=== PATIENT | female | born 1975 | race Caucasian/White ===

== ENCOUNTER 2016-09-06 07:21 | Emergency (ER) | payer BC ==
[2016-09-06 07:36] VITALS: BP 114/66
[2016-09-06] MEDS ORDERED: NS 0.9% 1000 ML* 1,000 ML BOLUS ONE (07:53)
[2016-09-06] MEDS ORDERED: Ketorolac INJ* 30 MG/ML 1 ML VIAL IV ONE (07:53)
[2016-09-06] MEDS ORDERED: Ondansetron INJ* 2 MG/ML VIAL IV ONE ×2 (07:54→08:51)
--- NOTE | 2016-09-06 07:55 | UC ---
Headache HPI - HPI Summary HPI Summary: 40 yo female with bitemproal TODD x 2 days Nausea decreased po intake photophobia has had Ct brain and MRI brain in past 6 mos no f/c no cp/sob some post nasal drip - History Of Current Complaint Chief Complaint: UCGeneralIllness Stated Complaint: HEADACHE AND NAUSEA Time Seen by Provider: 09/06/16 07:45 Hx Obtained From: Patient Onset/Duration: Gradual Onset, Lasting Days Onset Of Symptoms: Gradual Initially Headache Was: Moderate - sever at times in past 48 hours Currently Pain Is: Mild Pain Intensity: 4 Pain Scale Used: 0-10 Numeric Timing: Constant Character: Throbbing, Pressure Location of Headache: Temporal Aggravating Factor: Nothing Allevating Factors: Nothing Associated Signs And Symptoms: Positive: Nausea - Allergies/Home Medications Allergies/Adverse Reactions: Allergies Allergy/AdvReac Type Severity Reaction Status Date / Time FLOOR WAX STRIPPER Allergy Difficulty Uncoded 04/16/16 08:47 Breathing FLU SHOT Allergy Difficulty Uncoded 04/16/16 08:47 Breathing Home Medications: Home Medications Albuterol 0.5% CONC NEB.LEO* 09/06/16 [History] Cholecalciferol [Vitamin D-3] 09/06/16 [History] Coenzyme Q10 (Ubidecarenone) [Co-Enzyme Q10] 200 mg 09/06/16 [History] Probiotic Product [Acidophilus] 09/06/16 [History] Rizatriptan (NF) [Maxalt(NF)] 10 mg 09/06/16 [History] PMH/Surg Hx/FS Hx/Imm Hx Previously Healthy: Yes Endocrine History Of: Denies: Diabetes Cardiovascular History Of: Denies: Hypertension, Pacemaker/ICD Respiratory History Of: Reports: Asthma GI/ History Of: Denies: Renal Disease Neurological History Of: Reports: Migraine Cancer History Of: Denies: Breast Cancer - Surgical History Surgical History: Yes Surgery Procedure, Year, and Place: TONSIL 2010 - Family History Known Family History: Positive: Cardiac Disease, Other - migraines (sib) - Social History Alcohol Use: Rare Substance Use Type: None Smoking Status (MU): Never Smoked Tobacco - Immunization History Most Recent Influenza Vaccination: 2010 Most Recent Tetanus Shot: unknown Most Recent Pneumonia Vaccination: never Review of Systems Constitutional: Negative Skin: Negative Eyes: Negative ENT: Negative Respiratory: Negative Cardiovascular: Negative Gastrointestinal: Other - nausea Genitourinary: Negative Motor: Negative Neurovascular: Negative Musculoskeletal: Negative Neurological: Negative Psychological: Negative All Other Systems Reviewed And Are Negative: Yes Physical Exam Triage Information Reviewed: Yes Appearance: Well-Appearing, No Pain Distress, Well-Nourished Vital Signs: Initial Vital Signs Temp 98.1 F 09/06/16 07:30 Pulse 54 09/06/16 07:30 Resp 16 09/06/16 07:30 BP 114/66 09/06/16 07:30 Pulse Ox 98 09/06/16 07:30 Eyes: Positive: Conjunctiva Clear ENT: Positive: Hearing grossly normal, Pharynx normal, Nasal congestion, TMs normal. Negative: Tonsillar exudate, Trismus, Muffled/hoarse voice Neck: Positive: Supple, Nontender, No Lymphadenopathy, Other: - no bruits Respiratory: Positive: Lungs clear, Normal breath sounds, No respiratory distress, No accessory muscle use Cardiovascular: Positive: RRR, No Murmur, Pulses Normal Abdomen Description: Positive: Nontender, Soft. Negative: CVA Tenderness (R), CVA Tenderness (L) Bowel Sounds: Positive: Present Musculoskeletal: Positive: Strength Intact, ROM Intact Neurological: Positive: Alert, Muscle Tone Normal, Other: - non focal exam/ normal gait/strength 5/5, sensory intact, dtrs equal bilat Psychological Exam: Normal Skin Exam: Normal Skin: Positive: rashes Headache Course/Dx - Course Course Of Treatment: not improved - Differential Dx/Diagnosis Provider Diagnoses: headache Discharge - Discharge Plan Condition: Stable Disposition: HOME Prescriptions: Butalb/Acetamin/Caff TAB* [Fioricet TAB*] 1 tab PO Q6H PRN #12 tab MDD 4 PRN Reason: Headache Ondansetron ODT TAB* [Zofran Odt TAB*] 4 mg PO Q6H PRN #12 tab.odt PRN Reason: Nausea/Vomiting Patient Education Materials: General Headache (ED) Forms: *Work Release Referrals: Ofelia De Jesus MD [Primary Care Provider] - 4 Days (if not better) Additional Instructions: recheck for new or worsening symptoms
== END 2016-09-06 10:06 | disposition home or self-care (01) ==
LOC: UCEAST 07:21
DX: R51 Headache (principal); R11.2 Nausea with vomiting, unspecified
CPT/HCPCS: 96360; 96365; 96374; 99212; G0463; J1885; J2405

== ENCOUNTER 2017-12-16 21:21 | Emergency (ER) | payer BC ==
[2017-12-16 22:14] LABS: ABS Basophils 0 10^3/ul (0-0.2); ABS Eosinophils 0.1 10^3/ul (0-0.6); ABS Lymphocytes 1.4 10^3/ul (1.0-4.8); ABS Monocytes 0.4 10^3/ul (0-0.8); ABS Neutrophils 3.3 10^3/ul (1.5-7.7); ABS Nucleated RBC 0 10^3/ul; Eosinophil % 1.4 % (0-6); Hematocrit 40 % (35-47); Hemoglobin 13.3 g/dl (12.0-16.0); Lymphocyte % 27.4 % (25-47); Mean Corpuscular HGB Conc 33 g/dl (31-36); Mean Corpuscular Hemoglobin 32 pg (27-31); Mean Corpuscular Volume 96 fL (80-97); Mean Platelet Volume 8.8 um3 (7.4-10.4); Nucleated Red Blood Cells % 0; Platelet Count 230 10^3/ul (150-450); Red Blood Count 4.19 10^6/ul (4.0-5.4); Red Cell Distribution Width 13 % (10.5-15); White Blood Count 5.2 10^3/ul (3.5-10.8)
[2017-12-16 22:33] LABS: EGFR Non-African American 94.4 (>60)
[2017-12-16] MEDS ORDERED: Ketorolac INJ* 60 MG/2 ML VIAL IM ONE (23:00)
[2017-12-16] MEDS ORDERED: Potassium Chlor TAB* 20 MEQ TAB.ER PO ONE (23:00)
[2017-12-16] MEDS ORDERED: ALPRAZolam TAB* 0.5 MG PO ONE (23:00)
[2017-12-17 01:43] VITALS: BP 90/53
--- NOTE | 2017-12-17 01:48 | ED ---
Joon Magallon Rebecca, scribed for Brendan Tate MD on 12/16/17 at 2252 . HPI Chest Pain - HPI Summary HPI Summary: Pt is a 42 y/o F who presents to ED c/o CP. Pain began 4 days ago, initially intermittent though since yesterday it has been constant. Pain is described as a constant pressure with intermittent stabbing pain, currently moderate, ranked 6/10. Sx are in the midsternal area without radiation. Sx aggravated by deep breaths, alleviated by nothing. Cites recent stress. PMHx asthma - has used her albuterol which has not improved sx. FHx CAD - mother. - History of Current Complaint Chief Complaint: EDChestPainROMI Time Seen by Provider: 12/16/17 22:46 Hx Obtained From: Patient Onset/Duration: Started Days Ago - 4 days, Still Present Timing: Constant Current Severity: Moderate Pain Intensity: 6 Pain Scale Used: 0-10 Numeric Chest Pain Location: Mid Sternal Chest Pain Radiates: No Character: Pressure/Squeezing Aggravating Factor(s): Deep Breaths Alleviating Factor(s): Nothing Associated Signs and Symptoms: Positive: Negative - Allergy/Home Medications Allergies/Adverse Reactions: Allergies Allergy/AdvReac Type Severity Reaction Status Date / Time ackee fruit Allergy Rash Uncoded 01/14/17 08:05 FLOOR WAX STRIPPER Allergy Difficulty Uncoded 01/14/17 08:04 Breathing FLU SHOT Allergy Difficulty Uncoded 01/14/17 08:04 Breathing harley Allergy Difficulty Uncoded 01/14/17 08:05 Breathing PMH/Surg Hx/FS Hx/Imm Hx Endocrine/Hematology History: Denies: Hx Diabetes Cardiovascular History: Denies: Hx Hypertension, Hx Pacemaker/ICD Respiratory History: Reports: Hx Asthma GI History: Reports: Hx Gastroesophageal Reflux Disease, Other GI Disorders - bloated, gassy History: Denies: Hx Renal Disease Musculoskeletal History: Reports: Hx Back Problems Sensory History: Reports: Hx Contacts or Glasses Denies: Hx Hearing Aid Opthamlomology History: Reports: Hx Contacts or Glasses Neurological History: Reports: Hx Migraine Psychiatric History: Denies: Hx Panic Disorder - Cancer History Hx Chemotherapy: No Hx Radiation Therapy: No - Surgical History Surgery Procedure, Year, and Place: [place] 2010 Infectious Disease History: No Infectious Disease History: Reports: Hx Tuberculosis Denies: Traveled Outside the [place] in Last 30 Days - Family History Known Family History: Positive: Cardiac Disease, Other - migraines (sib) - Social History Alcohol Use: Occasionally Alcohol Amount: approx 2 drinks a month Substance Use Type: Reports: None Smoking Status (MU): Never Smoked Tobacco Have You Smoked in the Last Year: No Review of Systems Negative: Fever Positive: Chest Pain All Other Systems Reviewed And Are Negative: Yes Physical Exam - Summary Physical Exam Summary: VITAL SIGNS: Reviewed. GENERAL: ~Patient is a well-developed and nourished female who is lying comfortable in the stretcher. Patient is not in any acute respiratory distress. HEAD AND FACE: No signs of trauma. No ecchymosis, hematomas or skull depressions. No sinus tenderness. EYES: PERRLA, EOMI x 2, No injected conjunctiva, no nystagmus. EARS: Hearing grossly intact. Ear canals and tympanic membranes are within normal limits. MOUTH: Oropharynx within normal limits. NECK: Supple, trachea is midline, no adenopathy, no JVD, no carotid bruit, no c- spine tenderness, neck with full ROM. CHEST: Symmetric. Chest wall tenderness. LUNGS: Clear to auscultation bilaterally. No wheezing or crackles. CVS: Regular rate and rhythm, S1 and S2 present, no murmurs or gallops appreciated. ABDOMEN: Soft, non-tender. No signs of distention. No rebound no guarding, and no masses palpated. Bowel sounds are normal. EXTREMITIES: FROM in all major joints, no edema, no cyanosis or clubbing. NEURO: Alert and oriented x 3. No acute neurological deficits. Speech is normal and follows commands. SKIN: Dry and warm Triage Information Reviewed: Yes Vital Signs On Initial Exam: Initial Vitals Temp Pulse Resp BP Pulse Ox 97.2 F 72 18 140/87 100 12/16/17 21:24 12/16/17 21:24 12/16/17 21:24 12/16/17 21:24 12/16/17 21:24 Vital Signs Reviewed: Yes Diagnostics - Vital Signs Vital Signs Temp Pulse Resp BP Pulse Ox 12/16/17 22:41 73 16 99 12/16/17 22:40 114/64 12/16/17 21:24 97.2 F 72 18 140/87 100 - Laboratory Lab Results: Lab Results 12/16/17 12/16/17 12/16/17 Range/Units 22:00 22:00 22:00 WBC 5.2 (3.5-10.8) 10^3/ul RBC 4.19 (4.0-5.4) 10^6/ul Hgb 13.3 (12.0-16.0) g/dl Hct 40 (35-47) % MCV 96 (80-97) fL MCH 32 H (27-31) pg MCHC 33 (31-36) g/dl RDW 13 (10.5-15) % Plt Count 230 (150-450) 10^3/ul MPV 8.8 (7.4-10.4) um3 Neut % (Auto) 62.2 (38-83) % Lymph % (Auto) 27.4 (25-47) % [place] % (Auto) 8.4 H (0-7) % Eos % (Auto) 1.4 (0-6) % Baso % (Auto) 0.6 (0-2) % Absolute Neuts (auto) 3.3 (1.5-7.7) 10^3/ul Absolute Lymphs (auto) 1.4 (1.0-4.8) 10^3/ul Absolute Monos (auto) 0.4 (0-0.8) 10^3/ul Absolute Eos (auto) 0.1 (0-0.6) 10^3/ul Absolute Basos (auto) 0 (0-0.2) 10^3/ul Absolute Nucleated RBC 0 10^3/ul Nucleated RBC % 0 Sodium 137 L (139-145) mmol/L Potassium 3.2 L (3.5-5.0) mmol/L Chloride 101 (101-111) mmol/L Carbon Dioxide 28 (22-32) mmol/L Anion Gap 8 (2-11) mmol/L BUN 12 (6-24) mg/dL Creatinine 0.68 (0.51-0.95) mg/dL Est GFR ( Amer) 121.4 (>60) Est GFR (Non-Af Amer) 94.4 (>60) BUN/Creatinine Ratio 17.6 (8-20) Glucose 102 H (70-100) mg/dL Calcium 9.5 (8.6-10.3) mg/dL Total Bilirubin 0.40 (0.2-1.0) mg/dL AST 15 (13-39) U/L ALT 9 (7-52) U/L Alkaline Phosphatase 47 (34-104) U/L Troponin I 0.00 (<0.04) ng/mL C-Reactive Protein 1.88 (< 5.00) mg/L B-Natriuretic Peptide 26 ( - 100) pg/mL Total Protein 7.4 (6.4-8.9) g/dL Albumin 4.6 (3.2-5.2) g/dL Globulin 2.8 (2-4) g/dL Albumin/Globulin Ratio 1.6 (1-3) Beta HCG, Quant < 0.60 mIU/mL Result Diagrams: 12/16/17 22:00 12/16/17 22:00 Lab Statement: Any lab studies that have been ordered have been reviewed, and results considered in the medical decision making process. - Radiology CXR Xray Interpretation: No Acute Changes - No acute process. Radiology Interpretation Completed By: ED Physician - EKG 2123 Cardiac Rate: NL - 64 bpm EKG Rhythm: Sinus Rhythm EKG Interpretation: Normal axis. Normal interval. No ischemic changes. Re-Evaluation - Re-Evaluation First Eval Re-Evaluation Time: 01:24 Change: Improved Comment: Pt's sx have improved. Chest Pain Course/Dx - Course Assessment/Plan: Pt is a 42 y/o F who presents to ED c/o CP for 4 days, initially intermittent, constant since yesterday. Pain is a constant pressure with intermittent stabbing pain, currently moderate, ranked 6/10. Sx are in the midsternal area without radiation. Sx aggravated by deep breaths. Cites recent stress. PMHx asthma - has used her albuterol which has not improved sx. FHx CAD - mother. CXR and EKG reveal no acute findings. Bloodwork was done. Troponin of 0.00. In the ED course, pt received Xanax and Toradol which improved symptoms. Pt will be D/C to home with Dx of atypical chest pain and anxiety. She understands and agrees. Allergies noted. - Diagnoses Provider Diagnoses: Atypical chest pain, Anxiety Discharge - Sign-Out/Discharge Documenting (check all that apply): Discharge - Discharge - Discharge Plan Condition: Stable Disposition: HOME Patient Education Materials: Chest Pain (ED), Anxiety (ED) Referrals: Ofelia De Jesus MD [Primary Care Provider] - 3 Days Additional Instructions: RETURN TO EMERGENCY DEPARTMENT FOR ANY NEW OR WORSENING SYMPTOMS The documentation as recorded by the Joon godwin Rebecca accurately reflects the service I personally performed and the decisions made by , Brendan Tate MD.
--- NOTE | 2017-12-17 07:57 | RAD ---
INDICATION: Chest pain COMPARISON: None TECHNIQUE: An AP portable view obtained at 0030 hours is submitted. FINDINGS: Bones/Soft Tissues: There are no acute bony findings. Cardiomediastinal: The cardiomediastinal silhouette is normal. Lungs: There are no infiltrates. Pleura: There are no pleural effusions. Other: None IMPRESSION: NO ACTIVE DISEASE.
== END 2017-12-17 01:43 | disposition home or self-care (01) ==
LOC: ED 21:21
DX: R07.89 Other chest pain (principal); F41.9 Anxiety disorder, unspecified; J45.909 Unspecified asthma, uncomplicated; K21.9 Gastro-esophageal reflux disease without esophagitis
CPT/HCPCS: 36415; 71045; 80053; 83880; 84484; 84702; 85025; 86140; 93005; 96372; 99282; A9270-GY; J1885

== ENCOUNTER 2018-03-05 07:38 | Emergency (ER) | payer BC ==
[2018-03-05 08:00] VITALS: BP 107/62
--- NOTE | 2018-03-05 08:53 | UC ---
Mary Magallon Julia, scribed for Rosemary Chamberlain MD on 03/05/18 at 0831 . Complaint Female HPI - HPI Summary HPI Summary: A 42 year old F presents to [facility] with 3 complaints. . 1) With a chief complaint of UTI like symptoms since 03/02/18 worsening with intermittent deep left flank pain. Pain is 3/10 in severity upon triage, and 9/ 10 at its worse. Reports significant dysuria and frequency. Denies chills and hematuria. Able to eat and drink okay. Pain unchanged by ibuprofen (600mg) taken this morning. Patient has been taking Pyridium. Patient with occasional UTIs. No antibiotics for greater than 6 months. No history resistance. 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 She reports left sided sciatica like symptoms and tingling and pins and needles down into the lateral left leg all the way to toes. Reports previous improvement from muscles relaxers. Has been treating with heat, ice, and stretching. Patient has been taking Motrin with little improvement. Patient denies bowel or bladder incontinence. Patient states this pain is different than her pain related to UTI. Patient currently with little pain but states she gets a sharp episodes of spasm. No leg weakness. 3) Patient additionally reports swollen left hand after being bitten by a deer fly yesterday with worsening swelling today. Has been taking Benadryl and applying cream. Patient states little discomfort. States hand and finger swollen. No shortness of breath, no difficulty breathing. No facial swelling. No other complaints. Allergies and Medications reviewed. - History Of Current Complaint Chief Complaint: UCGU Stated Complaint: SWOLLEN HAND URINARY ISSUE BACK PAIN Time Seen by Provider: 03/05/18 08:18 Hx Obtained From: Patient Hx Last Menstrual Period: 01/12/18 Onset/Duration: Lasting Days Timing: Constant Severity Initially: Mild Severity Currently: Moderate Pain Intensity: 3 Pain Scale Used: 0-10 Numeric Associated Signs And Symptoms: Positive: Back Pain. Negative: Fever - Allergies/Home Medications Allergies/Adverse Reactions: Allergies Allergy/AdvReac Type Severity Reaction Status Date / Time ackee fruit Allergy Rash Uncoded 01/14/17 08:05 FLOOR WAX STRIPPER Allergy Difficulty Uncoded 01/14/17 08:04 Breathing FLU SHOT Allergy Difficulty Uncoded 01/14/17 08:04 Breathing harley Allergy Difficulty Uncoded 01/14/17 08:05 Breathing Home Medications: Home Medications Ibuprofen TAB* [Advil TAB*] 03/05/18 [History] Loratadine 03/05/18 [History] Pumpkin Seed Extract/Soy Germ [Azo Bladder Control Capsule] 03/05/18 [History] diPHENhydraMINE PO* [Benadryl PO 25 MG TAB*] 03/05/18 [History] PMH/Surg Hx/FS Hx/Imm Hx Previously Healthy: Yes Other Cardiovascular History: heart murmur Respiratory History: Asthma GI/ History: Gastroesophageal Reflux - Surgical History Surgical History: Yes Surgery Procedure, Year, and Place: TONSIL 2010 - Family History Known Family History: Positive: Cardiac Disease, Other - migraines (sib) - Social History 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 Alcohol Use: Occasionally Alcohol Amount: approx 2 drinks a month Substance Use Type: None Smoking Status (MU): Never Smoked Tobacco Have You Smoked in the Last Year: No - Immunization History Most Recent Influenza Vaccination: 2010 Most Recent Tetanus Shot: unknown Most Recent Pneumonia Vaccination: never Review of Systems Constitutional: Negative Genitourinary: Negative - hematuria, Dysuria, Frequency, Urgency Musculoskeletal: Edema - left hand, Myalgia - low back pain All Other Systems Reviewed And Are Negative: Yes Physical Exam - Summary Physical Exam Summary: Vital Signs Reviewed: Yes A+Ox3, no distress Eyes: Conjunctiva Clear, [place]. EOM intact and full ENT: Hearing grossly normal TM x 2 clear, mmoist, uvula midline, no exudate, no erythema Neck: Positive: Supple Respiratory: Positive: No respiratory distress, No accessory muscle use + CTA throughout no w/r Cardiovascular: RRR nl s1, s2 no m/r CBT <2 sec abd soft + BS nd no guarding, no distension mild suprapubic pain Musculoskeletal Exam: NAVARRETE x 4 without difficulty Strength Intact, ROM Intact no spinous process pain c/t/l/s Full AROM LE Neurological: Positive: Alert, + sensation throughout 2+ patellar, achiles b/l no clonus Psychological: Positive: Normal Response To Family Skin: Positive: no rash, no ecchymosis Pt with diffuse edema right hand, dorsum. Small area erythema at sting site no erythema Triage Information Reviewed: Yes Vital Signs: Initial Vital Signs Temp 98.1 F 03/05/18 07:47 Pulse 70 03/05/18 07:47 Resp 16 03/05/18 07:47 BP 107/62 03/05/18 07:47 Pulse Ox 100 03/05/18 07:47 Complaint Female Dx - Course Course Of Treatment: 1) patient reports UTI symptoms. Patient stated Pyridium therefore unable to check urinalysis at urgent care. Will start patient on amoxicillin. Recommend hydration. Continue Pyridium. Recommend patient to ED for increased pain, vomiting, nausea, other concerns. Patient's urine was sent for culture. 2) Patient with edema to her right hand. Recommend resting and elevating. Cool packs. No ice direct to skin for concern of frostbite. She is given Odell and splint for schroeder to assist in immobilization and elevation. 3) recommend patient take increased analgesia for her back. We'll write short course of Flexeril. Patient has taken in the past year of sedative effects. Heat, stretch, follow up PCP. The patient decrease the amount of ibuprofen due to urinary tract infection as well as NSAIDs and her allergy reaction to her hand. Note for tomorrow. PCP - Differential Dx/Diagnosis Provider Diagnoses: UTI. sting with local reaction. back strain Discharge - Sign-Out/Discharge Documenting (check all that apply): Discharge/Admit/Transfer - Discharge Plan Condition: Stable Disposition: HOME Prescriptions: Cephalexin CAP* [Keflex 500 CAP*] 500 mg PO BID #14 cap Cyclobenzaprine TAB* [Flexeril 10 MG TAB*] 5 mg PO BID PRN #10 tab PRN Reason: back spasm Patient Education Materials: Urinary Tract Infection in Women (ED), Insect Bite or Sting (ED), Muscle Spasm (ED) Forms: *Work Release Referrals: Ofelia De Jesus MD [Primary Care Provider] - Additional Instructions: For your UTI: - stay well hydrated - drink plenty of non-alcoholic, non caffinated beverages - your urine will be further tested - if you require any changes to your treatment, we will contact you - this usually take 2 days - Contact your primary doctor to arrange a follow-up appointment next week. Contact your doctor or return with questions or concerns - Take your antibiotics exactly as prescribed until gone - It is recommended you take Tylenol 1000mg every 6-8 hours for pain. Take with food - Call your doctor or return with questions or concerns. If you develop fever, vomiting, uncontrolled pain or other symptoms it is recommended you go directly to the emergency department For your back: - Okay to Take every 6 hours as needed for pain. - Take flexeril as needed for spasm. Take with food. Do NOT take for more than 4 -[address], operate machinery or drink alcohol while taking [place]. This medication may cause sleepiness -Apply moist heat to your back for 20 minutes at a time, 4-5 times a day. Once your muscles are warm, slow gentle stretching exercises are important -Contact your doctor today to arrange a follow-up appointment -If you pain is uncontrolled - go to an emergency department for further treatment For your hand: - elevate to help with swelling - okay to apply cool packs (wrapped in a towel) to help with swelling and pain - wear splint for immobilization and rest - Billing Disposition and Condition Condition: STABLE Disposition: Home The documentation as recorded by the Mary godwin Julia accurately reflects the service I personally performed and the decisions made by , Rosemary Chamberlain MD.
--- NOTE | 2018-03-06 19:16 | UC ---
- Progress Note Progress Note: urine final culture - no growth no change nidia 03/06/2018 Discharge - Sign-Out/Discharge Documenting (check all that apply): Post-Discharge Follow Up - Discharge Plan Condition: Stable Disposition: HOME Prescriptions: Cephalexin CAP* [Keflex 500 CAP*] 500 mg PO BID #14 cap Cyclobenzaprine TAB* [Flexeril 10 MG TAB*] 5 mg PO BID PRN #10 tab PRN Reason: back spasm Patient Education Materials: Urinary Tract Infection in Women (ED), Insect Bite or Sting (ED), Muscle Spasm (ED) Forms: *Work Release Referrals: Ofelia De Jesus MD [Primary Care Provider] - Additional Instructions: For your UTI: - stay well hydrated - drink plenty of non-alcoholic, non caffinated beverages - your urine will be further tested - if you require any changes to your treatment, we will contact you - this usually take 2 days - Contact your primary doctor to arrange a follow-up appointment next week. Contact your doctor or return with questions or concerns - Take your antibiotics exactly as prescribed until gone - It is recommended you take Tylenol 1000mg every 6-8 hours for pain. Take with food - Call your doctor or return with questions or concerns. If you develop fever, vomiting, uncontrolled pain or other symptoms it is recommended you go directly to the emergency department For your back: - Okay to Take every 6 hours as needed for pain. - Take flexeril as needed for spasm. Take with food. Do NOT take for more than 4 -[address], operate machinery or drink alcohol while taking [place]. This medication may cause sleepiness -Apply moist heat to your back for 20 minutes at a time, 4-5 times a day. Once your muscles are warm, slow gentle stretching exercises are important -Contact your doctor today to arrange a follow-up appointment -If you pain is uncontrolled - go to an emergency department for further treatment For your hand: - elevate to help with swelling - okay to apply cool packs (wrapped in a towel) to help with swelling and pain - wear splint for immobilization and rest - Billing Disposition and Condition Condition: STABLE Disposition: Home
== END 2018-03-05 09:03 | disposition home or self-care (01) ==
LOC: UCEAST 07:38
DX: N39.0 Urinary tract infection, site not specified (principal); S39.012A Strain of muscle, fascia and tendon of lower back, initial encounter; J45.909 Unspecified asthma, uncomplicated; X50.0XXA Overexertion from strenuous movement or load, initial encounter; Y93.89 Activity, other specified; S60.562A Insect bite (nonvenomous) of left hand, initial encounter; W57.XXXA Bitten or stung by nonvenomous insect and other nonvenomous arthropods, initial encounter; Y92.9 Unspecified place or not applicable; Z91.018 Allergy to other foods; Z91.09 Other allergy status, other than to drugs and biological substances; Z88.7 Allergy status to serum and vaccine
CPT/HCPCS: 87086; 99213; G0463

== ENCOUNTER 2018-05-20 09:19 | Emergency (ER) | payer BC ==
[2018-05-20] MEDS ORDERED: NS 0.9% 1000 ML* 1,000 ML IV ONE (09:49)
[2018-05-20] MEDS ORDERED: Ondansetron INJ* 2 MG/ML VIAL IV ONE (09:49)
--- NOTE | 2018-05-20 09:55 | ED ---
Neurological HPI - HPI Summary HPI Summary: Patient is a 42 y/o F w/ c/o atypical migraine Sx onsetting this morning. She notes that she has Dx of atypical migraines. In the room, patient reports nausea and intermittent expressive aphasia onsetting this morning at 0750. Patient states she knows what she wants to say but is experiencing difficulty doing so intermittently. She also reports tingling in both hands and tongue, chills, and shaking. Patient notes that she typically does not experience a TODD, but reports her head is "starting to feel weird". She notes that chills and shaking are atypical Sx of her migraines, and that she usually gets unilateral tingling as opposed to bilateral. Otherwise, past migraines are reported to have had similar Sx. In room, BP is 116/87, pulse 65, o2 94. PMHx of asthma, FMHx of CAD in mother. Rare alcohol use, no drug use, no smoking is reported. On triage, pain is denied, patient is noted to be photophobic, and nothing is noted to alleviate Sx. Home medications and allergies are noted. - History of Current Complaint Chief Complaint: EDNeurologicalDeficit Stated Complaint: DIFF SPEAKING Time Seen by Provider: 05/20/18 09:43 Hx Obtained From: Patient Hx Last Menstrual Period: 01/12/18 Onset/Duration: Started hours ago - onset 0750 today, Still Present Timing: Constant - all Sx except expressive aphasia Current Severity: None - pain denied Pain Intensity: 0 Pain Scale Used: 0-10 Numeric - 0/10 Aggravating: Bright Lights Alleviating: Nothing Associated Signs and Symptoms: Positive: Dizziness, Nausea/Vomiting - NAUSEA ONLY. Negative: Headache - Allergy/Home Medications Allergies/Adverse Reactions: Allergies Allergy/AdvReac Type Severity Reaction Status Date / Time ackee fruit Allergy Rash Uncoded 01/14/17 08:05 FLOOR WAX STRIPPER Allergy Difficulty Uncoded 01/14/17 08:04 Breathing FLU SHOT Allergy Difficulty Uncoded 01/14/17 08:04 Breathing harley Allergy Difficulty Uncoded 01/14/17 08:05 Breathing PMH/Surg Hx/FS Hx/Imm Hx Endocrine/Hematology History: Denies: Hx Diabetes Cardiovascular History: Denies: Hx Hypertension, Hx Pacemaker/ICD Respiratory History: Reports: Hx Asthma GI History: Reports: Hx Gastroesophageal Reflux Disease, Other GI Disorders - bloated, gassy History: Denies: Hx Renal Disease Musculoskeletal History: Reports: Hx Back Problems Sensory History: Reports: Hx Contacts or Glasses Denies: Hx Hearing Aid Opthamlomology History: Reports: Hx Contacts or Glasses Neurological History: Reports: Hx Migraine Psychiatric History: Denies: Hx Panic Disorder - Cancer History Hx Chemotherapy: No Hx Radiation Therapy: No - Surgical History Surgery Procedure, Year, and Place: [place] 2010 Infectious Disease History: No Infectious Disease History: Reports: Hx Tuberculosis Denies: Traveled Outside the [place] in Last 30 Days - Family History Known Family History: Positive: Cardiac Disease, Other - migraines (sib) - Social History Alcohol Use: Occasionally Alcohol Amount: approx 2 drinks a month Substance Use Type: Reports: None Smoking Status (MU): Never Smoked Tobacco Have You Smoked in the Last Year: No Review of Systems Positive: Chills, Other - shaking Positive: Photophobia Positive: Nausea Neurological: Other - expressive aphasia, bilateral tingling in hands and tongue , head "starting to feel weird", dizziness Negative: Headache All Other Systems Reviewed And Are Negative: Yes Physical Exam - Summary Physical Exam Summary: VITAL SIGNS: Reviewed. GENERAL: Patient is a well-developed and nourished female who is lying comfortable in the stretcher. Patient is not in any acute respiratory distress. HEAD AND FACE: No signs of trauma. No ecchymosis, hematomas or skull depressions. No sinus tenderness. EYES: PERRLA, EOMI x 2, No injected conjunctiva, no nystagmus. EARS: Hearing grossly intact. Ear canals and tympanic membranes are within normal limits. MOUTH: Oropharynx within normal limits. NECK: Supple, trachea is midline, no adenopathy, no JVD, no carotid bruit, no c- spine tenderness, neck with full ROM. No meningeal signs, no Kernig's or brudzinskis signs. CHEST: Symmetric, no tenderness at palpation LUNGS: Clear to auscultation bilaterally. No wheezing or crackles. CVS: Regular rate and rhythm, S1 and S2 present, no murmurs or gallops appreciated. ABDOMEN: Soft, non-tender. No signs of distention. No rebound no guarding, and no masses palpated. Bowel sounds are normal. EXTREMITIES: FROM in all major joints, no edema, no cyanosis or clubbing. NEURO: Alert and oriented x 3. No acute neurological deficits. Speech is normal and follows commands. SKIN: Dry and warm GCS: 15 NIH: 0 Triage Information Reviewed: Yes Vital Signs On Initial Exam: Initial Vitals Temp Pulse Resp BP Pulse Ox 97.8 F 76 18 113/76 100 05/20/18 09:24 05/20/18 09:24 05/20/18 09:24 05/20/18 09:24 05/20/18 09:24 Vital Signs Reviewed: Yes Diagnostics - Vital Signs Vital Signs Temp Pulse Resp BP Pulse Ox 05/20/18 09:24 97.8 F 76 18 113/76 100 - Laboratory Result Diagrams: 05/20/18 10:05 05/20/18 10:05 Lab Statement: Any lab studies that have been ordered have been reviewed, and results considered in the medical decision making process. - CT CT BRAIN CT Interpretation: No Acute Changes CT Interpretation Completed By: Radiologist - negative unenhanced CT; this report was reviewed by ED physician. - EKG 1003 Cardiac Rate: NL - rate of 63 BPM EKG Rhythm: Sinus Rhythm EKG Interpretation: no ST elevation, normal axis NIH Scale - NIH Scale Level of Consciousness: Alert/Keenly Responsive Ask Patient the Month and His/Her Age: Both Correct Ask Pt to Open/Close Eyes and Seedling Puller/Release Non-Paretic Hand: Both Correctly Best Gaze (Only Horizontal Eye Movement): Normal Visual Field Testing: No Visual Loss Facial Paresis-Pt to Smile & Close Eyes or Grimace Symmetry: Normal/Symmetrical Motor Function - Right Arm: No Drift-Holds 10 Seconds Motor Function - Left Arm: No Drift-Holds 10 Seconds Motor Function - Right Leg: No Drift-Holds 10 Seconds Motor Function - Left Leg: No Drift-Holds 10 Seconds Limb Ataxia-Must be out of Proportion to Weakness Present: Absent Sensory (Use Pinprick to Test Arms/Legs/Trunk/Face): Normal Best Language (Describe Picture, Name Items): No Aphasia Dysarthria (Read Several Words): Normal Extinction and Inattention: No Abnormality Total Score: 0 Re-Evaluation - Re-Evaluation First Eval Re-Evaluation Time: 12:10 Comment: Dr. Villareal discussed all the findings and test results with the patient. Patient was instructed to return to the emergency room immediately if any of the symptoms return or worsens. Plan of care was discussed with the patient and understands and agrees. All questions were answered at patient satisfaction. There were no further complaints or concerns. Lung exam before discharge: CTA B/L. Good air exchange. No wheezing or crackles heard. CVS: S1 and S2 present. No murmurs appreciated. Patient is alert and oriented x 3. Patient is hemodynamically stable. Patient will be discharged home with follow up PCP as well as neurologist in the next 2-3 days Course/Dx - Course Assessment/Plan: This patient is a 42-year-old female who presents to the emergency department with chief complaint of having nausea and an expressive aphasia. 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 She reports that she has history of atypical migraines. She denies TODD but states her head is "starting to feel weird". Patient also reports numbness/tingling in both hands and tongue, dizziness, chills, shaking. At this time the patient has no other complaints. Physical exam shows an normal neurological exam. There is no acute focal neurological deficits. In the ED course the patient was given IV fluids and Zofran for the nausea and vomiting. EKG shows a normal sinus rhythm without any ST elevations. Head CT impression: Negative unchanged CT. Blood work without any significant abnormalities. I discussed the case with Dr. Monsalve from neurology and he recommends for the patient to be discharged home with follow-up with Dr. Iraheta and primary care physician or her symptoms have resolved. At this point the patient is hemodynamically stable alert and oriented 3 and she has no acute neurological focal deficits. I discussed all the findings and test results with the patient. Patient was instructed to return to the emergency room immediately if any of the symptoms return or worsens. Plan of care was discussed with the patient and understands and agrees. All questions were answered at patient satisfaction. There were no further complaints or concerns. Lung exam before discharge: CTA B/L. Good air exchange. No wheezing or crackles heard. CVS: S1 and S2 present. No murmurs appreciated. Patient is alert and oriented x 3. Patient is hemodynamically stable. Patient will be discharged home with follow up PCP in the next 2-3 days - Differential Dx Differential Diagnoses Neuro: Positive: Migraine - Diagnoses Provider Diagnoses: Atypical migraine - Physician Notifications Discussed Care Of Patient With: Mary Monsalve Time Discussed With Above Provider: 11:48 Instructed by Provider To: Other - Patient's case was discussed with Dr. Monsalve at 1148. He states patient can be discharged to home and follow up with a neurologist. Discharge - Sign-Out/Discharge Documenting (check all that apply): Patient Departure - discharge - Discharge Plan Condition: Stable Disposition: HOME Patient Education Materials: Migraine Headache (ED), Paresthesia (ED) Forms: *Work Release Referrals: Ofelia De Jesus MD [Primary Care Provider] - 3 Days Concetta Iraheta MD [Medical Doctor] - 3 Days Additional Instructions: FOLLOW UP WITH PRIMARY CARE PHYSICIAN AND NEUROLOGIST IN 3 DAYS. RETURN TO ED FOR ANY NEW OR WORSENING SYMPTOMS. - Billing Disposition and Condition Condition: STABLE Disposition: Home - Attestation Statements Document Initiated by Scribe: Yes Documenting Scribe: Johnathon Rogel Provider For Whom Scribe is Documenting (Include Credential): Vahe Villareal MD Scribe Attestation: I, Johnathon Rogel, scribed for Vahe Villareal MD on 05/20/18 at 1840. Scribe Documentation Reviewed: Yes Provider Attestation: The documentation as recorded by the Johnathon godwin accurately reflects the service I personally performed and the decisions made by me, Vahe Villareal MD
[2018-05-20 10:14] LABS: ABS Basophils 0 10^3/ul (0-0.2); ABS Eosinophils 0.1 10^3/ul (0-0.6); ABS Monocytes 0.4 10^3/ul (0-0.8); ABS Neutrophils 3.2 10^3/ul (1.5-7.7); ABS Nucleated RBC 0 10^3/ul; Eosinophil % 1.1 % (0-6); Hematocrit 38 % (35-47); Hemoglobin 13.1 g/dl (12.0-16.0); Mean Corpuscular HGB Conc 35 g/dl (31-36); Mean Corpuscular Hemoglobin 33 pg (27-31); Mean Corpuscular Volume 94 fL (80-97); Mean Platelet Volume 8.8 um3 (7.4-10.4); Nucleated Red Blood Cells % 0.1; Platelet Count 197 10^3/ul (150-450); Red Blood Count 4.01 10^6/ul (4.00-5.40); Red Cell Distribution Width 14 % (10.5-15); White Blood Count 4.6 10^3/ul (3.5-10.8)
[2018-05-20 10:20] LABS: INR 0.94 (0.77-1.02)
[2018-05-20 10:29] LABS: EGFR Non-African American 105.1 (>60)
[2018-05-20 10:39] LABS: Urine Appearance Clear; Urine Blood Negative (Negative); Urine Color Straw; Urine Ketones Negative (Negative); Urine Protein Negative (Negative); Urine Specific Gravity 1.005 (1.010-1.030); Urine Urobilinogen Negative (Negative)
--- NOTE | 2018-05-20 11:05 | RAD ---
Indication: Sudden onset nausea at 0730 hours. Expressive aphasia onset 0715 hours. History of atypical migraines. Comparison: April 18, 2016 MRI and April 10, 2016 CT. Technique: Noncontrast CT vertex of skull through foramen magnum. Report: Normal variant mild asymmetry in the frontal horns of the lateral ventricles without change. Unremarkable basal cisterns and cerebral sulci. Negative for max matter white matter obscuration, intra or extra-axial hemorrhage, or mass effect. Unremarkable partially visualized orbital contents. Unremarkable calvarium and skull base. Clear visualized paranasal sinuses and mastoid air spaces. Unremarkable scalp. IMPRESSION: #. Negative unenhanced head CT.
[2018-05-20 12:51] VITALS: BP 98/67
== END 2018-05-20 12:50 | disposition home or self-care (01) ==
LOC: ED 09:19
DX: G43.909 Migraine, unspecified, not intractable, without status migrainosus (principal); J45.909 Unspecified asthma, uncomplicated; Z82.49 Family history of ischemic heart disease and other diseases of the circulatory system; Z88.7 Allergy status to serum and vaccine
CPT/HCPCS: 36415; 70450; 80053; 80307; 80320; 81003; 83605; 84484; 84702; 85025; 85610; 86850; 86900; 86901; 93005; 96374; 99283; G0480; J2405

== ENCOUNTER 2019-07-04 11:46 | Emergency (ER) | payer BC ==
--- OUTSIDE RECORDS SUMMARY | 2019-07-04 12:20 | XMS REPORT | Continuity of Care Document ---
:1975 External Reference #:[id number] Author Name Samia Owusu NP Address [address] [facility] [place] [address] Care Team Providers Name Role Phone Ofelia DeJ esus M.D. - Family Medicine Care Team Information Trouble Lineman Unavailable Problems Active Problems Provider Date Migraine Ofelia De Jesus M.D. Onset: 06/22/2014 Migraine with typical aura Ofelia De Jesus M.D. Onset: 03/13/2017 Moderate major depression, single episode Ofelia De Jesus M.D. Onset: 2016 Social History Type Date Description Comments Sex Unknown Tobacco Use Start: Unknown Never Smoked Cigarettes ETOH Use Rare Tobacco Use Start: Unknown Patient has never smoked Smoking Status Reviewed: 06/30/19 Patient has never smoked Exercise Type/Frequency Exercises regularly katrin chi Allergies, Adverse Reactions, Alerts Active Allergies Reaction Severity Comments Date Flu Virus Vaccine near syncope 05/06/2014 harley 03/14/2015 Floor Wax Stripper difficulty breathing 01/16/2016 Medications Active Medications SIG Qnty Indications Ordering Provider Date Sertraline HCL 1 by mouth every 90tabs F33.1 Samia Chao 06/30/2019 50mg day Umer, LITHOPRESS OPERATOR Tablets Zofran 1 by mouth every 20tabs G43.809 Dora Patterson, 01/08/2019 4mg Tablets 4-6 hours as LITHOPRESS OPERATOR needed nausea G43.909 Epinephrine use as directed 4units Dora Patterson, 01/08/2019 0.3mg/0.3ML LITHOPRESS OPERATOR Solution Auto-Inject Flovent HFA prn 12gm Ofelia De Jessu M.D. 10/10/2018 110mcg/Act Aerosol Ipratropium 1-2 vials every 90ml J45.901 Ahsely Guerrero, PADMINI 09/27/2016 Vanderwagen/Albuterol four hours as Sulfate needed for cough 0.5-2.5(3)mg/3ML Solution Ventolin HFA 2 puffs every 4 8gm J45.901 Samia Vanano, 09/27/2016 108(90Base) hours as needed LITHOPRESS OPERATOR mcg/Act Aerosol J06.9 Nebulizer use as directed J45.901 Raquel HughesFlash 09/27/2016 Kit/Tubing/Mouthpiece [address] Kit Imitrex take one tablet 30tabs G43.909 Vera Do, 06/10/2014 50mg Tablets by mouth at Afnp-C onset of migraine, may repeat in 2 hours G43.809 Loratadine 10mg 1 by mouth every day prn Unknown Tablets Excedrin Migraine prn Unknown [phone] Tablets Vitamin D3 1 by mouth every day Unknown 2000Unit Capsules Magnesium 500mg 1 by mouth every day Unknown Tablets Cyclobenzaprine HCL Unknown 10mg Tablets Co Q10 200mg once daily Unknown Capsules Blackcohosh Unknown History Medications Gabapentin take one to 4 360caps Dora Patterson, 01/29/2019 - 100mg capsules by mouth LITHOPRESS OPERATOR 06/30/2019 Capsules at bedtime as needed for hot flashes Medications Administered in Office Medication SIG Qnty Indications Ordering Provider Date TB Intradermal Test Unknown 11/25/2017 Injection Immunizations Description No Information Available Vital Signs Date Vital Result Comment 06/30/2019 7:17pm BP Systolic 114 mmHg BP Diastolic 70 mmHg Heart Rate 102 /min Body Temperature 97.9 F Respiratory Rate 20 /min Weight 155.00 lb 01/08/2019 2:45pm BP Systolic 98 mmHg BP Diastolic 68 mmHg Heart Rate 70 /min Body Temperature 98.6 F Respiratory Rate 16 /min Height 62 inches 5'2" Weight 159.00 lb BMI (Body Mass Index) 29.1 kg/m2 Results Test Date Facility Test Result H/L Range Note Comprehensive Metabolic 01/08/2019 [facility] Sodium 142 mEq/L 134-149 Prof Potassium 3.8 mEq/L 3.6-5.5 Chloride 102 mEq/L 94-112 Carbon Dioxide 30 mEq/L 21-32 Glucose 102 mg/dL 70-105 BUN 10 mg/dL 6-26 Creatinine 0.7 mg/dL 0.6-1.4 BUN/Creat Ratio 14.3 CALC 8.0-36.0 Calcium 9.2 mg/dL 8.6-10.2 Total Protein 7.0 g/dL 6.4-8.3 Albumin 4.6 g/dL 3.8-5.5 Globulin 2.4 g/dL 2.0-4.8 A/G Ratio 1.9 CALC 0.6-2.3 Alk. Phosphatase 58 U/L 30-110 Alt (SGPT) 11 U/L 7-35 Ast (Sgot) 21 U/L 5-34 Total Bilirubin 0.3 mg/dL 0.2-1.3 GFR Non- >60 ml/min/1.73m^ >=60 GFR >60 ml/min/1.73m^ >=60 Laboratory test 01/08/2019 [facility]) TSH 1.38 mIU/L 0.50-6.00 finding Lipid Profile 01/08/2019 [facility]) Cholesterol 201 mg/dL High 120-200 Triglycerides 99 mg/dL 30-200 HDL Cholesterol 82 mg/dL 30-85 LDL (Calculated) 99 CALC 0-129 VLDL Cholesterol 20 mg/dL 0-50 HDL Risk Factor 2.5 CALC 0.0-4.4 Lyme, Western Blot, 01/06/2019 [facility] IgG P93 Ab. Absent [address] [place] [id number] (607)- - IgG P66 Ab. Absent IgG P58 Ab. Absent IgG P45 Ab. Absent IgG P41 Ab. Absent IgG P39 Ab. Absent IgG P30 Ab. Absent IgG P28 Ab. Absent IgG P23 Ab. Absent IgG P18 Ab. Absent Lyme IgG WB Interp. Negative 2 IgM P41 Ab. Absent IgM P39 Ab. Absent IgM P23 Ab. Absent Lyme IgM WB Interp. Negative 3 Laboratory test 01/06/2019 [facility] C-Reactive 1.4 mg/L 0.0-4.[address] [place] [address] Protein, [place] [id number] (607)- - CBC Electronic 01/06/2019 [facility]) WBC 3.8 Low 4.0-10.0 Fma x10^3/UL RBC 4.26 x10^6/UL 3.93-6.00 HGB 13.3 g/dL 12.0-17.0 HCT 40 % 35-50 MCV 93.7 fL 80.0-95.0 MCH 31.2 pg 25.6-32.2 MCHC 33.3 g/dL 32.2-36.0 RDW-CV 12.5 % 11.6-14.4 PLT 243 x10^3/UL 163-400 MPV 10.9 fL 9.4-12.4 Maykel# 2.44 x10^3/UL 1.56-6.13 Lymph# 0.94 x10^3/UL Low 1.18-3.74 Weld# 0.30 x10^3/UL 0.24-0.82 Eos # 0.1 x10^3/UL 0.0-0.5 Baso # 0.03 x10^3/UL 0.01-0.08 Maykel% 63.8 % 34.0-70.0 Lymph % 24.6 % 20.0-52.0 Weld% 7.9 % 5.0-12.0 Eos% 2.6 % 0.7-7.0 Baso% 0.8 % 0.1-1.2 Flu A&B (Fma) 01/06/2019 [facility] Influenza A NEGATIVE (607)- - Influenza B NEGATIVE Laboratory test finding 01/06/2019 [facility] Sedimentation Rate 11mm (607)- - 1 2 gold top sst tubes sent 2 Positive: 5 of the following Borrelia-specific bands: 18,23,28,30,39,41,45,58, 66, and 93. Negative: No bands or banding patterns which do not meet positive criteria. 3 Note: An equivocal or positive EIA result followed by a negative Western Blot result is considered NEGATIVE. An equivocal or positive EIA result followed by a positive Western Blot is considered POSITIVE by the CDC. Positive: 2 of the following bands: 23,39 or 41 Negative: No bands or banding patterns which do not meet positive criteria. Criteria for positivity are those recommended by CDC/ASTPHLD. p23=Osp C, k08=[id number] Note: Sera from individuals with the following may cross react in the Lyme Western Blot assays: other spirochetal diseases (periodontal disease, leptospirosis, relapsing fever, yaws, and pinta); connective autoimmune (Rheumatoid Arthritis and Systemic Lupus Erythematosus and also individuals with Antinuclear Antibody); other infections ([place] Spotted Fever; Chhaya-Peter Virus, and Cytomegalovirus). Procedures Date Code Description Status 01/16/2019 [id number] Mammogram Completed 05/27/2018 [id number] Mammogram Completed 08/30/2017 [id number] Mammogram Completed 01/14/2017 [id number] Mammogram Completed 01/11/2017 [id number] Mammogram Completed 11/14/2015 [id number] Mammogram Completed Medical Devices Description No Information Available Encounters Type Date Location Provider Dx Diagnosis Office Visit 01/08/2019 Main Office Dora Patterson, Z00.00 Encntr for general 2:30p LITHOPRESS OPERATOR adult medical exam w/o abnormal findings Z12.31 Encntr screen mammogram for malignant neoplasm of breast G43.809 Other migraine, not intractable, without status migrainosus J45.901 Unspecified asthma with (acute) exacerbation Z91.018 Allergy to other foods Office Visit 01/06/2019 11:30a Main Office Samia Astudillo01.Shalini Acute sinusitisUmer NP unspecified M25.50 Pain in unspecified joint Assessments Date Code Description Provider 06/30/2019 F33.1 Major depressive disorder, recurrent, Samia Owusu NP moderate 01/08/2019 Z00.00 Encounter for general adult medical Dora Patterson NP examination without abno 01/08/2019 Z12.31 Encounter for screening mammogram for Dora Patterson NP malignant neoplasm of 01/08/2019 G43.809 Other migraine, not intractable, without Dora Patterson NP status migrainosus 01/08/2019 J45.901 Unspecified asthma with (acute) Dora Patterson NP exacerbation 01/08/2019 Z91.018 Allergy to other foods Dora Patterson NP 01/06/2019 J01.90 Acute sinusitis, unspecified Samia Owusu NP 01/06/2019 M25.50 Pain in unspecified joint Samia Owusu NP Plan of Treatment 06/30/2019 - Samia Owusu NPF33.1 Major depressive disorder, recurrent, moderateNew Medication:Sertraline HCL 50 mg - 1 by mouth every dayComments:I encourage you to take some time to take care of yourself and your body : eat healthy foodsexercisemake sure you are getting enough restmeditation therapyrelaxation exercises journaling Generally, just good self care. Now is the time to focus on yourself. Zoloft will take between 4-6 weeks to show improvement, full benefit can be felt closer to 10-12 weeks. In the meantime, good nutrition, good hydration, encourage therapy, exercise and taking some time for yourself if worsening condition, thoughts or feelings of suicide, please seek medical care [place] [facility] LifelineCall [phone] hx of seasonal affective disorder, questionable connection with hormonal changes - consider checking out [facility] for hormonal testing/options to help manage itAllComments:Medication Management Patient Understands medications he 's taking? Yes No Are there Barriers to Adherence? Yes No Has the patient been asked about herbal supplements and therapies, andOTC meds? Yes No Care Plan1. Patient has been queried about patient's goals/preferences and functional/lifestyle goals at relevant visits. If relevant, describe: na2. Treatment goals as explained to the patient: above3. Are there barriers to meeting treatment goals? Yes No If Yes, please describe: disease process4. Self-Management goals as described to the patient: Yes NoAs always, we strongly encourage a healthy diet and making physical activity a part of your everyday life. If you have questions about how or where to start, please contact the office. Functional Status Description No Information Available Mental Status Description No Information Available Referrals Description No Information Available
== END 2019-07-04 12:06 | disposition left against medical advice (07) ==
LOC: UCCORT 11:46
DX: Z53.21 Procedure and treatment not carried out due to patient leaving prior to being seen by health care provider (principal)

== ENCOUNTER 2019-08-26 13:16 | Emergency (ER) | payer BC ==
--- OUTSIDE RECORDS SUMMARY | 2019-08-26 13:24 | XMS REPORT | Continuity of Care Document ---
:1975 External Reference #:[id number] Author Name Concetta Iraheta M.D. 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 Onset: 10/21/2014 Note: Basilar migraine questioned Social History Type Date Description Comments Sex Unknown ETOH Use Rarely consumes alcohol Tobacco Use Start: Unknown Patient has never smoked Recreational Drug Use Denies Drug Use Smoking Status Reviewed: 07/24/19 Patient has never smoked Exercise Type/Frequency Exercises regularly Allergies, Adverse Reactions, Alerts Active Allergies Reaction Severity Comments Date Flu Virus Vaccine Allergic asthma Severe 10/21/2014 Medications Active Medications SIG Qnty Indications Ordering Provider Date Sertraline HCL take 1 by mouth 90tabs Concetta Iraheta, 07/24/2019 100mg each day M.D. Tablets Fioricet 1 capsule by 30caps Concetta Iraheta, 05/30/2018 50-300-40mg mouth every 8 M.D. Capsules hours as needed Ketorolac Tromethamine take 1 by mouth 10tabs Concetta Iraheta, 05/19/2015 every 8 hours as M.D. 10mg Tablets needed for migraine. take with food. Flonase as needed Unknown 50mcg/Act Suspension Albuterol Sulfate as needed Unknown (2.5mg/3ML) 0.083% Nebulizer Acetaminophen as needed Unknown 500mg Capsules Vitamin D3 1 by mouth every Unknown day (winter Capsules only) Ondansetron take 1 -2 tabs 40tabs Concetta Iraheta, 4mg Tablets under the tongue M.D. Dispers every 8 hours as needed for nausea Black Cohosh daily Unknown Magnesium 1 by mouth every Unknown 250mg Tablets day Co Q-10 1 by mouth every Unknown 200mg Capsules day Immunizations Description No Information Available Vital Signs Date Vital Result Comment 07/24/2019 8:44am Height 62 inches 5'2" Weight 152.00 lb Heart Rate 70 /min BP Systolic 110 mmHg BP Diastolic 68 mmHg BMI (Body Mass Index) 27.8 kg/m2 07/30/2018 12:00pm Height 62 inches 5'2" Weight 149.50 lb Heart Rate 66 /min BP Systolic 108 mmHg BP Diastolic 68 mmHg BMI (Body Mass Index) 27.3 kg/m2 Results Description No Information Available Procedures Description No Information Available Medical Devices Description No Information Available Encounters Type Date Location Provider Dx Diagnosis Office Visit 07/24/2019 [facility] Concetta Iraheta, G43.109 Migraine with 8:30a [facility] aura, not intractable, w/o status migrainosus F39 Unspecified mood [affective] disorder H53.8 Other visual disturbances Assessments Date Code Description Provider 07/24/2019 G43.109 Migraine with aura, not intractable, without Concetta Iraheta M.D. status migraino 07/24/2019 F39 Unspecified mood [affective] disorder Concetta Iraheta M.D. 07/24/2019 H53.8 Other visual disturbances Concetta Iraheta M.D. Plan of Treatment Future Appointment(s):09/29/2019 9:00 am - Concetta Iraheta M.D. at [facility]07/24/2019 - Concetta Iraheta M.D.G43.109 Migraine with aura, not intractable, without status migrainoComments:we also talked about potential for use of:1. Effexor: headaches, mood, hot flashes2. 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: please update secondary [facility]Recommendations:would increase sertraline to to 100mg, for abortive medication, can use Excedrin 2 days a week canuse aleve (2 tablets) with ondansetron, and benadryl for more significant headaches, maximum 2 days a week.F39 Unspecified mood [affective] [id number] Other visual disturbancesReferral:Pat West MD, Ophthalmology Functional Status Description No Information Available Mental Status Description No Information Available Referrals Refer to Dr Reason for Referral Status Appt Date Pat West MD flashes of light in peripheral vision, Created 00/ some associated with migraine, some with out. [facility] [address] [place] [address] [phone]
[2019-08-26 13:36] VITALS: BP 105/65
[2019-08-26 13:46] LABS: Influenza A Molecular NEGATIVE (Negative); Influenza B Molecular NEGATIVE (Negative)
[2019-08-26] MEDS ORDERED: Oseltamivir CAP* 75 MG CAP PO ONE (13:56)
[2019-08-26] MEDS ORDERED: Ondansetron ODT TAB* 4 MG PO ONE (13:57)
[2019-08-26] MEDS ORDERED: Amoxicillin PO (*) 500 MG CAP PO ONE (13:57)
--- NOTE | 2019-08-26 14:01 | UC ---
FLU HPI - HPI Summary HPI Summary: 43-year-old woman comes in with a chief complaint of influenza-like illness. Is been going on since yesterday. Having a pretty severe sore throat is worse with swallowing. Patient is also nauseous has not thrown up. She has a headache and body aches. No fevers measured. She did take some over-the- counter medicines which did help some with the symptoms but overall patient feels ill. - History of Current Complaint Chief Complaint: UCGeneralIllness Stated Complaint: THROAT,TODD,CHILLS Time Seen by Provider: 08/26/19 13:23 Hx Last Menstrual Period: ~08/15/19 Pain Intensity: 6 - Allergy/Home Medications Allergies/Adverse Reactions: Allergies Allergy/AdvReac Type Severity Reaction Status Date / Time acai Allergy Rash Verified 08/26/19 13:30 Influenza Virus Vaccines Allergy Difficulty Verified 08/26/19 13:30 Breathing harley Allergy Difficulty Verified 08/26/19 13:30 Breathing FLOOR WAX STRIPPER Allergy Difficulty Uncoded 08/26/19 13:30 Breathing Home Medications: Home Medications Acetaminophen [Acetaminophen ER] 650 mg PO Q4H PRN 08/26/19 [History Confirmed 08/26/19] Albuterol HFA INHALER* [Ventolin HFA Inhaler*] 1 - 2 puff INH Q4H PRN 08/26/19 [ History Confirmed 08/26/19] Cholecalciferol TAB* [Vitamin D TAB*] 2,000 units PO DAILY 08/26/19 [History Confirmed 08/26/19] Magnesium Oxide [Magnesium] 500 mg PO DAILY 08/26/19 [History Confirmed 08/26/19 ] Ondansetron ODT TAB* [Zofran 4 MG Odt TAB*] 4 mg PO Q6H PRN 08/26/19 [History Confirmed 08/26/19] Sertraline* [Zoloft*] 100 mg PO DAILY 08/26/19 [History Confirmed 08/26/19] Ubidecarenone [Co Q-10] 200 mg PO DAILY 08/26/19 [History Confirmed 08/26/19] PMH/Surg Hx/FS Hx/Imm Hx Previously Healthy: Yes Respiratory History: Asthma Neurological History: Migraine - Surgical History Surgical History: Yes Surgery Procedure, Year, and Place: Tonsillectomy, 2010 - Family History Known Family History: Positive: Cardiac Disease, Other - migraines (sib) - Social History Alcohol Use: Occasionally Alcohol Amount: approx 2 drinks a month Substance Use Type: None Smoking Status (MU): Never Smoked Tobacco Have You Smoked in the Last Year: No - Immunization History Most Recent Influenza Vaccination: 2010 Most Recent Tetanus Shot: unknown Most Recent Pneumonia Vaccination: never Review of Systems All Other Systems Reviewed And Are Negative: Yes Constitutional: Positive: Other - see hpi Skin: Positive: Negative Eyes: Positive: Negative ENT: Positive: Sore Throat, Other - see hpi Respiratory: Positive: Negative Cardiovascular: Positive: Negative Gastrointestinal: Positive: Nausea Motor: Positive: Negative Neurovascular: Positive: Negative Musculoskeletal: Positive: Myalgia Neurological: Positive: Headache Psychological: Positive: Negative Is Patient Immunocompromised?: No Physical Exam Triage Information Reviewed: Yes Appearance: No Pain Distress, Well-Nourished, Ill-Appearing - mild Vital Signs: Initial Vital Signs Temp 99.2 F 08/26/19 13:25 Pulse 67 08/26/19 13:25 Resp 18 08/26/19 13:25 BP 105/65 08/26/19 13:25 Pulse Ox 99 08/26/19 13:25 Vital Signs Reviewed: Yes Eye Exam: Normal Eyes: Positive: Conjunctiva Clear ENT: Positive: Pharyngeal erythema, Nasal congestion, Nasal drainage, TMs normal Neck: Positive: Supple Respiratory: Positive: Lungs clear, Normal breath sounds, No respiratory distress Cardiovascular: Positive: RRR Musculoskeletal: Positive: Strength Intact, ROM Intact Neurological: Positive: Alert, Muscle Tone Normal Psychological: Positive: Normal Response To Family, Age Appropriate Behavior Skin Exam: Normal Flu Course/Dx - Course Course Of Treatment: Patient has an influenza-like illness with pharyngitis. We discussed Tamiflu and viral infections and bacterial infections and the role of antibiotics. At this time the patient prefers to start the Tamiflu. Also sent a prescription for Zofran. Patient prefers to have the antibiotic to be used if needed. Follow-up with primary care doctor get reevaluated sooner if worse and requests concerns. - Differential Dx/Diagnosis Provider Diagnosis: Influenza-like illness, Pharyngitis Discharge ED - Sign-Out/Discharge Documenting (check all that apply): Patient Departure All imaging exams completed and their final reports reviewed: No Studies - Discharge Plan Condition: Stable Disposition: HOME Prescriptions: Amoxicillin PO (*) [Amoxicillin 500 MG CAP*] 500 mg PO TID #28 cap Ondansetron ODT TAB* [Zofran 4 MG Odt TAB*] 4 mg PO Q6H PRN #10 tab.odt PRN Reason: Nausea Oseltamivir CAP* [Tamiflu CAP*] 75 mg PO BID #8 cap Patient Education Materials: Pharyngitis (ED), Influenza (ED) Forms: *Work Release Referrals: Ofelia De Jesus MD [Primary Care Provider] - Additional Instructions: FOLLOW UP WITH YOUR DOCTOR IF NOT COMPLETELY IMPROVED. GET REEVALUATED SOONER IF NOT IMPROVING OR WORSE OR ANY QUESTIONS OR CONCERNS. - Billing Disposition and Condition Condition: STABLE Disposition: Home
== END 2019-08-26 14:12 | disposition home or self-care (01) ==
LOC: UCCORT 13:16
DX: J02.9 Acute pharyngitis, unspecified (principal); R11.0 Nausea; R51 Headache; M79.10 Myalgia, unspecified site; J45.909 Unspecified asthma, uncomplicated; G43.909 Migraine, unspecified, not intractable, without status migrainosus; J34.89 Other specified disorders of nose and nasal sinuses; R09.81 Nasal congestion; Z79.899 Other long term (current) drug therapy; Z88.7 Allergy status to serum and vaccine; Z91.018 Allergy to other foods; Z91.048 Other nonmedicinal substance allergy status
CPT/HCPCS: 87651; 99213; A9270-GY; G0463

== ENCOUNTER 2019-10-30 11:50 | Emergency (ER) | payer BC ==
--- OUTSIDE RECORDS SUMMARY | 2019-10-30 12:31 | XMS REPORT | Continuity of Care Document ---
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 Onset: 10/21/2014 Note: Basilar migraine questioned Social History Type Date Description Comments Sex Unknown Tobacco Use Start: Unknown End: Does not smoke Unknown ETOH Use Occasionally consumes alcohol Tobacco Use Start: Unknown Patient has never smoked Recreational Drug Use Denies Drug Use Smoking Status Reviewed: 07/24/19 Patient has never smoked Exercise Type/Frequency Exercises regularly Walking, yoga Allergies, Adverse Reactions, Alerts Active Allergies Reaction Severity Comments Date Flu Virus Vaccine Allergic asthma Severe 10/21/2014 Mangoes anaphylaxis 10/20/2019 Floor Wax Stripper Difficulty breathing 10/20/2019 Ackee Fruit Rash, Vomiting, Diarrhea 10/20/2019 Medications Active Medications SIG Qnty Indications Ordering Date Provider Sertraline HCL take 1.5 tabs by 135tabs Jd Hinds, 07/24/2019 100mg mouth each day N.P. Tablets Fioricet 1 capsule by 30caps Concetta [...] Vitamin D3 1 by mouth every Unknown (winter Capsules only) Ondansetron take 1 -2 tabs 40tabs Concetta Iraheta, 4mg Tablets under the tongue M.D. Dispers every 8 hours as needed for nausea Black Cohosh prn Unknown Magnesium 1 by mouth every Unknown 500mg Capsules day Co Q-10 1 by mouth every Unknown 200mg Capsules day Immunizations Description No Information Available Vital Signs Date Vital Result Comment 10/20/2019 8:14am Height 62 inches 5'2" Weight 143.00 lb Heart Rate 60 /min BP Systolic 103 mmHg BP Diastolic 65 mmHg Body Temperature 97.4 F O2 % BldC Oximetry 99 % BMI (Body Mass Index) 26.2 kg/m2 07/24/2019 8:44am Height 62 inches 5'2" Weight 152.00 lb Heart Rate 70 /min BP Systolic 110 mmHg BP Diastolic 68 mmHg BMI (Body Mass Index) 27.8 kg/m2 Results Description No Information Available Procedures Description No Information Available Medical Devices Description No Information Available Encounters Type Date Location Provider Dx Diagnosis Office Visit 07/24/2019 [facility] Concetta Esequiel, G43.109 Migraine with 8:30a [facility] aura, not intractable, w/o status migrainosus F39 Unspecified mood [affective] disorder H53.8 Other visual disturbances Assessments Date Code Description Provider 10/20/2019 N95.9 Unspecified menopausal and perimenopausal Shira Sevilla NP disorder 10/20/2019 R14.0 Abdominal distension (gaseous) Shira Sevilla NP 10/20/2019 K59.00 Constipation, unspecified Shira Sevilla NP 10/20/2019 G89.4 Chronic pain syndrome Shira Sevilla NP 10/20/2019 F33.9 Major depressive disorder, recurrent, Shira Sevilla NP unspecified 10/20/2019 N92.6 Irregular menstruation, unspecified Shira Sevilla NP 10/20/2019 R53.83 Other fatigue Shira Sevilla NP 07/24/2019 G43.109 Migraine with aura, not intractable, without Concetta Iraheta M.D. status migraino 07/24/2019 F39 Unspecified mood [affective] disorder Concetta Iraheta M.D. 07/24/2019 H53.8 Other visual disturbances Concetta Iraheta M.D. Plan of Treatment 10/20/2019 - Shirajg Sevilla, NPN95.9 Unspecified menopausal and perimenopausal disorderFollow up:follow up 45 minute (week of the ) Labs will be on day 20 of your cycle. (you want these on day 19-21 of a 2830 day cycle) - ( November 06Saturday Recommend 4 week elimination - slowly reintroduce 1 food every 3-4 days. I will add you to wellevate Plan to hold off on SIBO testing and tryelimination diet firstRecommendations:Great Resources: The [address] - free 10 week online program - www.FuelMiner Recommended Reading: Please read this book it is a great resource for women! Dr. Yandy Hansen book - The Brain Body Diet or Hormone Cure Cookbooks: I am not recommending a Keto diet - however these cookbooks are about eating nutrient dense foods. Dr. Ciaran De Jesus - What the heck should I cook Dr. Ernst - Cooking Mahesh Dr. Haider Yang??s - Ketotarian Dr. Cabrera - Fat for Fuel or KetoFast COOKBOOKS - These come with fire patrol books if you wish Podcasts: Broken Brain Series The AppSocially Radio Focus should be on NUTRIENT DENSE foods.R14.0 Abdominal distension (gaseous)Recommendations:If the digestive system is working properly, we have maximum absorption of nutrients, resulting in energy and vitality. When the digestive system is not working well, we have bloating, systemic inflammation, skin rashes, food sensitivities, constipation, abdominal discomfort, fatigue, and many other diverse non-specific symptoms such as headaches, poor mood, joint pain, muscle fatigue, etc. The digestive tract may become compromised with a diet high in refined sugar, a diet low in fiber, as well asantibiotics, medications, stress, parasitic infections, bacterial infections, nutrient deficiencies,and alcohol use. These mechanisms may promote inflammation of the intestinal tract and lead to increased intestinal permeability. What is SIBO? SIBO occurs when the bacteria that normally live in the colon move backwards, up into the small intestine (where they are not supposed to be in high numbers) and an overgrowth develops. It can also occur when the small amount of bacteria normally present in the small intestines overgrows. When the bacteria are in the small intestine, THEY start digesting and fermenting your food (instead of YOU digesting and absorbing your food), creating gas, bloating, and malabsorption for the host. What are the symptoms? Extreme bloating (many people say they look 6months ) Constipation, diarrhea, or both Abdominal pain, tenderness, or discomfort Burping and/or farting Nausea Acid reflux Gastroparesis (like food is just sitting in stomach, won??t go down-feels like a brick in the stomach) Food sensitivities or intolerances Leaky gut Anxiety & depression (very common for SIBO ?? the LPS in the bacterial cell wall (endotoxins) increase inflammatory cytokines, which affect mood) Brain fog How do you test for SIBO? Unfortunately, insurance doesn't tend to cover this test we offer in the office. We use the [employer] and it will test for the two types of SIBO - Methane and Hydrogen. The cost is $179. We recommend you send the test in with your payment and can ask the company for a bill that you can submit to your insurance. You can pay the testin full or they will let you split the payment into 4 payments. Please contact the company if you have any questions and review the handout we have provided for you.K59.00 Constipation, unspecifiedRecommendations: Recommendation Tips for Good Gut Health Increase your plant intake (ideally from whole foods) Plant fiber intake is associated with increased production of good gut organisms While your eating some plants, ideally like to see you get 9 daily servings of a variety of whole fruits, vegetables, and leafygreens. You should also include/consider other plant-based foods like beans, lentils, nuts, seeds and whole grains. Improve Protein Sources: Red meat has been linked to an increase in firmicutes (whichis not good) and red meat is correlated with less optimal gut balance Ideally like you to remove redmeat as a source of protein Preferred sources are seafood and poultry Work on increasing your omega-3 fatty acids, as increased levels of omega-3??s are highly correlated to gut diversity Chelsea-3 fattyacid sources to consider are seafood, walnuts, flax and ren seeds Stress Management Stress has an enormous impact on your gut. You may not realize this but this could be the biggest issue impacting the gut. Look for realistic ways to manage stress. On the simple spectrum are breathing exercises , but you??ll see the most results through incorporating more meaningful de- stressing regimens into your life such as meditation or yoga practice. Incorporating Exercise Ongoing exercise has an extremely highcorrelation to a well-balanced git Recommend a routine of at least three times a week Supplements Probiotic Prebiotic Multi-vitamin Chelsea-3 EPA-DHA (cold water fish) G89.4 Chronic pain syndromeRecommendations:Recommend elimination diet Nutrient Support for Inflammation: Chelsea-3 fatty acids - 2000 mg/day (non GMO, low Mercury fish oil) Turmeric - 1000 mg/day split in several doses Vitamin C 1000 - 2000 mg mg day Zinc 15 mg day N-acetyl cysteine 600 mg twice daily Vitamin D 2000 units/dayF33.9 Major depressive disorder, recurrent, unspecifiedRecommendations:Engaging any mindfulness practice daily will also help heal your HPA axis dysregulation. guided meditation, consider [facility] kalyn STRESS FREE. Consider MBSR (mindfulness-Based Stress Reduction) 8 week program this year. offered in [facility] every few months. Consider FREE MBSR online program: [email or web address] View/ Do ??4-7-8? ? breathing: Breathe in through nose for4 counts Hold your breath for 7 counts Exhale through mouth for 8 counts This combination of count ratio slows heart rate and relaxes the sympathetic nervous system. Adopt yoga practice- Available reviews of a wide range of yoga practices suggest they can reduce the impact of exaggerated stress responses and may be helpful for both anxiety and depression. In this respect, yoga functions like other self-soothing techniques , such as meditation, relaxation, exercise, or even socializing with friends. By reducing perceived stress and anxiety, yoga appears to modulate stress response systems. This,in turn, decreases physiological arousal ?? for example, reducing the heart rate, lowering blood pressure, and easing respiration. There is also evidence that yoga practices help increase heart rate variability, an indicator of the body's ability to respond to stress more flexibly.N92.6 Irregular menstruation, unspecifiedRecommendations:Recommend considering advanced hormone testing with BERMUDIAN or Labrix test - The BERMUDIAN Test will also look at Organic Acids.R53.83 Other fatigueRecommendations:Fatigue is multi- factorial food sensitivities can play a role. An elimination diet is a validated approach to try to pin point food sensitivities. Increase healthy fats in the diet with cold pressed extra virgin olive oil, flax seed, hemp oil, fish oil (wild caught EPA/DHA). Nuts, seeds, avocado. Stress can play a large role in fatigue. Daily stress relaxation techniques. Sleep: sleeping 8 hours a day. Exercise: 30-60 minutes daily of exercise. Keeping your blood sugar stable removing high glycemic foods. Adrenal fatigue (HPA [place] dysregulation) - Lifestyle changes can make a difference. 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 Sleep is very important as is diet and exercise. Consider stress reduction techniques. Screening Tests: It is important to be up to date on your screening tests for your age Functional Status Description No Information Available Mental Status Description No Information Available Referrals Refer to Reason for Referral Status Appt Date Pat West MD flashes of light in peripheral vision, Sent 00/00/ 0000 some associated with migraine, some with out. [facility] [address] [place] [phone]
--- OUTSIDE RECORDS SUMMARY | 2019-10-30 12:31 | XMS REPORT | Continuity of Care Document ---
:1975 External Reference #:[id number] Author Name Dipak Lazo NP (transmitted by agent of provider Pina Villarreal) Address [address], [place] [address] Care Team Providers Name Role Phone Ofelia De Jesus MD - Family Care Team Information Family Resource Coordinator [phone] Medicine Problems Active Problems Provider Date Migraine with aura Concteta Iraheta M.D. Onset: 10/21/2014 Note: Basilar migraine questioned Social History Type Date Description Comments Sex Unknown Tobacco Use Start: Unknown End: Does not smoke Unknown ETOH Use Occasionally consumes alcohol Tobacco Use Start: Unknown Patient has never smoked Recreational Drug Use Denies Drug Use Smoking Status Reviewed: 10/26/19 Patient has never smoked Exercise Type/Frequency Exercises regularly Walking, yoga Allergies, Adverse Reactions, Alerts Active Allergies Reaction Severity Comments Date Flu Virus Vaccine Allergic asthma Severe 10/21/2014 Mangoes anaphylaxis 10/20/2019 Floor Wax Stripper Difficulty breathing 10/20/2019 Ackee Fruit Rash, Vomiting, Diarrhea 10/20/2019 Medications Active Medications SIG Qnty Indications Ordering Date Provider Medrol Take as 21unlorin Burroughs 10/26/2019 4mg TBPK directed. Rosy M.D. Sertraline HCL take 1.5 tabs by 135tabs [...] Vitamin D3 1 by mouth every Unknown 1999Un day (winter Capsules only) Ondansetron take 1 -2 tabs 40tabs Mark S. 4mg Tablets under the tongue Yunier Gallegos Dispers every 8 hours as needed for nausea Black Cohosh prn Unknown Magnesium 1 by mouth every Unknown 500mg Capsules day Co Q-10 1 by mouth every Unknown 200mg Capsules day Immunizations Description No Information Available Vital Signs Date Vital Result Comment 10/26/2019 9:49am Height 62 inches 5'2" Weight 144.00 lb Heart Rate 64 /min BP Systolic Sitting 102 mmHg BP Diastolic Sitting 78 mmHg BMI (Body Mass Index) 26.3 kg/m2 10/20/2019 8:14am Height 62 inches 5'2" Weight 143.00 lb Heart Rate 60 /min BP Systolic 103 mmHg BP Diastolic 65 mmHg Body Temperature 97.4 F O2 % BldC Oximetry 99 % BMI (Body Mass Index) 26.2 kg/m2 Results Description No Information Available Procedures Description No Information Available Medical Devices Description No Information Available Encounters Type Date Location Provider Dx Diagnosis Office Visit 07/24/2019 [facility] Concetta Iraheta, G43.109 Migraine with 8:[facility]a [facility] aura, not intractable, w/o status migrainosus F39 Unspecified mood [affective] disorder H53.8 Other visual disturbances Assessments Date Code Description Provider 10/26/2019 G43.009 Migraine without aura, not intractable, Dipak Lazo NP without status migrainosus 10/26/2019 F39 Unspecified mood [affective] disorder Dipak Lazo NP 10/26/2019 H53.8 Other visual disturbances Dipak Lazo NP 10/20/2019 N95.9 Unspecified menopausal and perimenopausal Shira Sevilla NP disorder 10/20/2019 R14.0 Abdominal distension (gaseous) Shira Sevilla NP 10/20/2019 K59.00 Constipation, unspecified Shira Sevilla NP 10/20/2019 G89.4 Chronic pain syndrome Shira Sevilla, [employer] 10/20/2019 F33.9 Major depressive disorder, recurrent, Shira Di, [employer] unspecified 10/20/2019 N92.6 Irregular menstruation, unspecified Shira Sevilla, [employer] 10/20/2019 R53.83 Other fatigue Shira Sevilla, [employer] 07/24/2019 G43.109 Migraine with aura, not intractable, without Concetta Iraheta M.D. status migraino 07/24/2019 F39 Unspecified mood [affective] disorder Concetta Iraheta M.D. 07/24/2019 H53.8 Other visual disturbances Concetta Iraheta M.D. Plan of Treatment Future Appointment(s):11/24/2019 3:30 pm - Dipak Lazo NP at [facility]10/26/2019 - Dipak Lazo, BASIAG43.009 Migraine without aura, not intractable, without status migrainosusFollow up:ONE [id number] Unspecified mood [affective] [id number] Other visual disturbances Functional Status Description No Information Available Mental Status Description No Information Available Referrals Refer to Dr Reason for Referral Status Appt Date Pat West MD flashes of light in peripheral vision, Sent 00/00/ 0000 some associated with migraine, some with out. [facility] [address] [place] [address] [phone]
[2019-10-30 12:54] VITALS: BP 99/63
[2019-10-30] MEDS ORDERED: Ketorolac INJ* 30 MG/ML 1 ML VIAL IM ONE (13:33)
[2019-10-30] MEDS ORDERED: Ondansetron ODT TAB* 4 MG SL PRN (13:34)
[2019-10-30] MEDS ORDERED: Ondansetron TAB* 4 MG PO ONE (13:44)
[2019-10-30] MEDS ORDERED: Ondansetron ODT TAB* 4 MG ONE (13:46)
--- NOTE | 2019-10-30 14:21 | UC ---
Headache HPI - HPI Summary HPI Summary: a 43-year-old female presents with migraine headache. She has a history of migraines endoscope to neurologist. Last and her neurologist advised that she gets Toradol, Benadryl as well as Zofran. She did take Zofran this morning as well as Toradol by mouth with minimal improvement. She did also use her medical marijuana bleeping pen in the past which does help. She denies anyred flags worst headache of her life, double vision or vision loss or any neurological symptoms. 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 She did contact her neurologist who advised her to come here for the Toradol and potentially put her on a prednisone taper. - History Of Current Complaint Chief Complaint: UCHeadache Stated Complaint: HEADACHE Time Seen by Provider: 10/30/19 13:10 Hx Obtained From: Patient Hx Last Menstrual Period: 2 weeks Pain Intensity: 7 Pain Scale Used: 0-10 Numeric - Allergies/Home Medications Allergies/Adverse Reactions: Allergies Allergy/AdvReac Type Severity Reaction Status Date / Time Influenza Virus Vaccines Allergy Difficulty Verified 08/26/19 13:30 Breathing harley Allergy Difficulty Verified 08/26/19 13:30 Breathing ackee fruit Allergy rash, Uncoded 10/30/19 12:56 vomiting diarrhea FLOOR WAX STRIPPER Allergy Difficulty Uncoded 08/26/19 13:30 Breathing Home Medications: Home Medications Acetaminophen [Acetaminophen ER] 1,000 mg PO Q24H PRN 08/26/19 [History Confirmed 08/26/19] Albuterol HFA INHALER* [Ventolin HFA Inhaler*] 1 - 2 puff INH Q4H PRN 08/26/19 [ History Confirmed 08/26/19] Cholecalciferol TAB* [Vitamin D TAB*] 2,000 units PO DAILY 08/26/19 [History Confirmed 10/30/19] Magnesium Oxide [Magnesium] 500 mg PO DAILY 08/26/19 [History Confirmed 10/30/19 ] Sertraline* [Zoloft*] 150 mg PO DAILY 08/26/19 [History Confirmed 10/30/19] Ubidecarenone [Co Q-10] 200 mg PO DAILY 08/26/19 [History Confirmed 10/30/19] Butalb/Acetamin/Caff TAB* [Fioricet TAB*] 1 tab PO DAILY 10/30/19 [History Confirmed 10/30/19] Ketorolac TAB * [Toradol TAB *] 10 mg PO Q8H PRN 10/30/19 [History Confirmed ] Medical Marijuana 1 dose INH SEE INSTRUCTIONS PRN 10/30/19 [History] Medrol Dose Pack 1 tab PO BID 10/30/19 [History] Ondansetron ODT TAB* [Zofran 4 MG Odt TAB*] 4 mg PO Q2H PRN 10/30/19 [History Confirmed 10/30/19] predniSONE [Prednisone 20 MG TAB] 20 mg PO SEE INSTRUCTIONS #18 tablet 10/30/19 [Rx] PMH/Surg Hx/FS Hx/Imm Hx Previously Healthy: Yes Psychological History: Anxiety - Surgical History Surgical History: Yes Surgery Procedure, Year, and Place: Tonsillectomy, 2010 - Family History Known Family History: Positive: Cardiac Disease, Other - migraines (sib) - Social History Occupation: Employed Full-time Alcohol Use: Occasionally Alcohol Amount: approx 2 drinks a month Substance Use Type: Marijuana Substance Use Comment - Amount & Last Used: medical marijuana 10/24/19- 10/28/19 Smoking Status (MU): Never Smoked Tobacco Have You Smoked in the Last Year: No - Immunization History Most Recent Influenza Vaccination: 2010 Most Recent Tetanus Shot: unknown Most Recent Pneumonia Vaccination: never Review of Systems All Other Systems Reviewed And Are Negative: Yes Neurological/Mental Status: Positive: Headache Is Patient Immunocompromised?: No Physical Exam Triage Information Reviewed: Yes Appearance: Well-Nourished, Pain Distress Vital Signs: Initial Vital Signs Temp 98.5 F 10/30/19 12:38 Pulse 75 10/30/19 12:38 Resp 14 10/30/19 12:38 BP 99/63 10/30/19 12:38 Pulse Ox 100 10/30/19 12:38 Vital Signs Reviewed: Yes Eye Exam: Normal ENT Exam: Normal ENT: Positive: Other - mild photophobia Dental Exam: Normal Neck exam: Normal Neck: Positive: 1 Respiratory Exam: Normal Cardiovascular Exam: Normal Abdominal Exam: Normal Musculoskeletal Exam: Normal Neurological Exam: Normal Neurological: Positive: Alert Psychological Exam: Normal Skin Exam: Normal Headache Course/Dx - Course Course Of Treatment: given Toradol and Zofran with mild improvement. Patient requesting prednisone as her neurologist she stated this would be beneficial. Patient aware and agreeable to side effects of medication. Follow up with neurology as soon as possible. If symptoms were similar to emergency room. - Differential Dx/Diagnosis Provider Diagnosis: Migraine headache, Hx of migraines Discharge ED - Sign-Out/Discharge Documenting (check all that apply): Patient Departure All imaging exams completed and their final reports reviewed: No Studies - Discharge Plan Condition: Good Disposition: HOME Prescriptions: predniSONE [Prednisone 20 MG TAB] 20 mg PO SEE INSTRUCTIONS #18 tablet Patient Education Materials: Migraine Headache (ED) Forms: *Work Release Referrals: Ofelia De Jesus MD [Primary Care Provider] - 3 Days - Billing Disposition and Condition Condition: GOOD Disposition: Home
== END 2019-10-30 14:19 | disposition home or self-care (01) ==
LOC: UCCORT 11:50
DX: G43.909 Migraine, unspecified, not intractable, without status migrainosus (principal); F41.9 Anxiety disorder, unspecified; Z86.69 Personal history of other diseases of the nervous system and sense organs; Z79.899 Other long term (current) drug therapy; Z88.7 Allergy status to serum and vaccine; Z91.018 Allergy to other foods; Z91.09 Other allergy status, other than to drugs and biological substances
CPT/HCPCS: 99212; A9270-GY; G0463; J1885

== ENCOUNTER 2019-11-07 14:20 | Emergency (ER) | payer BC ==
--- NOTE | 2019-11-07 14:30 | ED ---
Headache - HPI Summary HPI Summary: 43 year old F with hx migraines arriving via ambulance to [facility] accompanied by family members complains of migraine, photophobia, intermittent full body tremors, nausea/vomiting x20 days. She rates the pain 7/10 in severity. Symptoms aggravated by bright lights. Symptoms alleviated by rx medications and marijuana. She has seen Dr. Iraheta in the past. She called neurologist production team member this morning and was referred to the ED. Patient has been to ED before for her migraines. She was seen at [facility] on Wednesday 11/01, given a migraine cocktail which didn't help, and d/c. Started taking new medication last night. Medications reviewed. Allergies noted. Home Medications Medication Instructions Recorded Confirmed Type Acetaminophen [Acetaminophen ER] 1,000 mg PO Q24H PRN 08/26/19 08/26/19 History Albuterol HFA INHALER* [Ventolin 1 - 2 puff INH Q4H PRN 08/26/19 08/26/19 History HFA Inhaler*] Cholecalciferol TAB* [Vitamin D 2,000 units PO DAILY 08/26/19 10/30/19 History TAB*] Magnesium Oxide [Magnesium] 500 mg PO DAILY 08/26/19 10/30/19 History Sertraline* [Zoloft*] 150 mg PO DAILY 08/26/19 10/30/19 History Ubidecarenone [Co Q-10] 200 mg PO DAILY 08/26/19 10/30/19 History Butalb/Acetamin/Caff TAB* 1 tab PO DAILY 10/30/19 10/30/19 History [Fioricet TAB*] Ketorolac TAB * [Toradol TAB *] 10 mg PO Q8H PRN 10/30/19 10/30/19 History Medical Marijuana 1 dose INH SEE INSTRUCTIONS PRN 10/30/19 History Medrol Dose Pack 1 tab PO BID 10/30/19 History Ondansetron ODT TAB* [Zofran 4 MG 4 mg PO Q2H PRN 10/30/19 10/30/19 History Odt TAB*] predniSONE [Prednisone 20 MG TAB] 20 mg PO SEE INSTRUCTIONS #18 10/30/19 Rx tablet - History Of Current Complaint Stated Complaint: GENERAL PER FAMILY Time Seen by Provider: 11/07/19 14:23 Hx Obtained From: Patient Onset/Duration: Started days ago - 20, Still Present Currently Pain Is: Current Pain Scale(0-10)= - 7, Moderate Timing: Constant, Intermittent, Lasting: Aggravating Factor: Bright Lights Allevating Factors: Medication, Other (Noted In Comments) - marijuana - Allergies/Home Medications Allergies/Adverse Reactions: Allergies Allergy/AdvReac Type Severity Reaction Status Date / Time Influenza Virus Vaccines Allergy Difficulty Verified 08/26/19 13:30 Breathing harley Allergy Difficulty Verified 08/26/19 13:30 Breathing ackee fruit Allergy rash, Uncoded 10/30/19 12:56 vomiting diarrhea FLOOR WAX STRIPPER Allergy Difficulty Uncoded 08/26/19 13:30 Breathing Home Medications: Home Medications Acetaminophen [Acetaminophen ER] 1,000 mg PO Q24H PRN 08/26/19 [History Confirmed 08/26/19] Albuterol HFA INHALER* [Ventolin HFA Inhaler*] 1 - 2 puff INH Q4H PRN 08/26/19 [ History Confirmed 08/26/19] Cholecalciferol TAB* [Vitamin D TAB*] 2,000 units PO DAILY 08/26/19 [History Confirmed 10/30/19] Magnesium Oxide [Magnesium] 500 mg PO DAILY 08/26/19 [History Confirmed 10/30/19 ] Sertraline* [Zoloft*] 150 mg PO DAILY 08/26/19 [History Confirmed 10/30/19] Ubidecarenone [Co Q-10] 200 mg PO DAILY 08/26/19 [History Confirmed 10/30/19] Butalb/Acetamin/Caff TAB* [Fioricet TAB*] 1 tab PO DAILY 10/30/19 [History Confirmed 10/30/19] Ketorolac TAB * [Toradol TAB *] 10 mg PO Q8H PRN 10/30/19 [History Confirmed ] Medical Marijuana 1 dose INH SEE INSTRUCTIONS PRN 10/30/19 [History] Medrol Dose Pack 1 tab PO BID 10/30/19 [History] Ondansetron ODT TAB* [Zofran 4 MG Odt TAB*] 4 mg PO Q2H PRN 10/30/19 [History Confirmed 10/30/19] predniSONE [Prednisone 20 MG TAB] 20 mg PO SEE INSTRUCTIONS #18 tablet 10/30/19 [Rx] Divalproex Sodium [Depakote] 500 mg PO TID 3 Days #9 tablet. 11/07/19 [Rx] PMH/Surg Hx/FS Hx/Imm Hx Endocrine/Hematology History: Denies: Hx Diabetes Cardiovascular History: Denies: Hx Hypertension, Hx Pacemaker/ICD Respiratory History: Reports: Hx Asthma GI History: Reports: Hx Gastroesophageal Reflux Disease, Other GI Disorders - bloated, gassy History: Denies: Hx Renal Disease Musculoskeletal History: Reports: Hx Back Problems Sensory History: Reports: Hx Contacts or Glasses Denies: Hx Hearing Aid Opthamlomology History: Reports: Hx Contacts or Glasses Neurological History: Reports: Hx Migraine Psychiatric History: Denies: Hx Panic Disorder - Cancer History Hx Chemotherapy: No Hx Radiation Therapy: No - Surgical History Surgery Procedure, Year, and Place: Tonsillectomy, 2010 Infectious Disease History: Reports: Hx Tuberculosis - Family History Known Family History: Positive: Cardiac Disease, Other - migraines (sib) - Social History Alcohol Use: Occasionally Alcohol Amount: approx 2 drinks a month Hx Substance Use: Yes Substance Use Type: Reports: Marijuana Substance Use Comment - Amount & Last Used: medical marijuana 10/24/19- 10/28/19 Hx Tobacco Use: No Smoking Status (MU): Never Smoked Tobacco Have You Smoked in the Last Year: No Review of Systems Positive: Other - full body tremors Positive: Photophobia Positive: Vomiting, Nausea Neurological/Mental Status: Other - migraine All Other Systems Reviewed And Are Negative: Yes Physical Exam - Summary Physical Exam Summary: Constitutional: Well-developed, Well-nourished, Alert. (-) Distressed Skin: Warm, Dry HENT: Normocephalic; Atraumatic Eyes: Conjunctiva normal Neck: Musculoskeletal ROM normal neck. (-) JVD, (-) Stridor, (-) Tracheal deviation Cardio: Rhythm regular, rate normal, Heart sounds normal; Intact distal pulses; The pedal pulses are 2+ and symmetric. Radial pulses are 2+ and symmetric. (-) Murmur Pulmonary/Chest wall: Effort normal. (-) Respiratory distress, (-) Wheezes, (-) Rales Abd: Soft, (-) tenderness, (-) Distension, (-) Guarding, (-) Rebound Musculoskeletal: (-) Edema Lymph: (-) Cervical adenopathy Neuro: Alert, Oriented x3; no focal deficits; no nystagmus Psych: She is having intermittent full body tremors; She appears anxious Triage Information Reviewed: Yes Vital Signs Reviewed: Yes Procedures - Sedation Patient Received Moderate/Deep Sedation with Procedure: No Diagnostics - Laboratory Result Diagrams: 11/07/19 14:42 11/07/19 14:42 Lab Statement: Any lab studies that have been ordered have been reviewed, and results considered in the medical decision making process. Re-Evaluation - Re-Evaluation First Eval Re-Evaluation Time: 16:10 Comment: patient aware of neuro consult Second Eval Re-Evaluation Time: 19:50 Comment: Dr. Monsalve here to see patient Third Eval Re-Evaluation Time: 20:18 Comment: Dr. Monsalve saw patient. He recommends d/c and rx for Depakote 500 mg TID for 3 days Headache Course/Dx - Course Course Of Treatment: 43 y/o F with hx migraines p/w migraines, photophobia, intermittent full body tremors, n/v x20 days. Referred to the ED by neurologist production team member. Upon physical exam, she is having intermittent full body tremors. She appears anxious. No focal deficits. No nystagmus. Bloodwork results with no significant abnormalities. In the ED course, the patient was given Benadryl, Toradol, Ativan, Reglan, normal saline fluids. Dr. Monsalve recommends trying IV Depacon and steroids. He agrees to see patient in ED. Dr. Monsalve recommends d/c patient home with rx for Depakote. Patient will be discharged home with prescription for Depakote 500 mg TID for 3 days and follow up from her primary care provider in 3 days. Patient was instructed to return to Emergency Department for new or worsening symptoms. Patient understands and is agreeable to this plan. - Diagnoses Provider Diagnoses: Migraine, Anxiety - Physician Notifications Discussed Care Of Patient With: Mary Monsalve Time Discussed With Above Provider: 16:02 Instructed by Provider To: Other - Dr. Monsalve recommends trying IV Depacon and steroids. If patient does not improve, may need admission. He agrees to see patient in ED. Discharge ED - Sign-Out/Discharge Documenting (check all that apply): Patient Departure - Discharge Plan Condition: Stable Disposition: HOME Prescriptions: Divalproex Sodium [Depakote] 500 mg PO TID 3 Days #9 tablet. Patient Education Materials: Migraine Headache (ED) Referrals: Ofelia De Jesus MD [Primary Care Provider] - 11/09/19 Additional Instructions: Please follow up with your primary care provider on Saturday11/09/2019. Return to the Emergency Department for changing or worsening symptoms. - Billing Disposition and Condition Condition: STABLE Disposition: Home - Attestation Statements Document Initiated by Scribe: Yes Documenting Scribe: Jayne Salas Provider For Whom Joe is Documenting (Include Credential): Flako Montoya DO Scribe Attestation: Jayne Magallon, scribed for Flako Montoya DO on 11/07/19 at 2131. Scribe Documentation Reviewed: Yes Provider Attestation: The documentation as recorded by the Jayne godwin accurately reflects the service I personally performed and the decisions made by , Flako Montoya DO Status of Scribe Document: Viewed
--- OUTSIDE RECORDS SUMMARY | 2019-11-07 14:31 | XMS REPORT | Continuity of Care Document ---
:1975 External Reference #:[id number] Author Name Dipak Lazo NP (transmitted by agent of provider Luisa Maurer) Address [address], [place] [address] Care Team Providers Name Role Phone Ofelia De Jesus MD - Family Care Team Information [employer] [phone] Medicine Problems Active Problems Provider Date Migraine with aura Concetta Iraheta M.D. Onset: 10/21/2014 Note: Basilar migraine questioned Social History Type Date Description Comments Sex Unknown Tobacco Use Start: Unknown End: Does not smoke Unknown ETOH Use Occasionally consumes alcohol Tobacco Use Start: Unknown Patient has never smoked Recreational Drug Use Denies Drug Use Smoking Status Reviewed: 11/03/19 Patient has never smoked Exercise Type/Frequency Exercises regularly Walking, yoga Allergies, Adverse Reactions, Alerts Active Allergies Reaction Severity Comments Date Flu Virus Vaccine Allergic asthma Severe 10/21/2014 Mangoes anaphylaxis 10/20/2019 Floor Wax Stripper Difficulty breathing 10/20/2019 Ackee Fruit Rash, Vomiting, Diarrhea 10/20/2019 Medications Active Medications SIG Qnty Indications Ordering Date Provider Riboflavin take one tab by 90tabs Mark Burroughs 11/03/2019 400mg mouth daily. Yunier Gallegos Tablets Sumatriptan Succinate take one injection 3ml Mark Burroughs 11/03/2019 Refill subcutaneously at Yunier Gallegos 6mg/0.5ML onset of headache, Solution Cartridge as needed; then may repeat 2 hours later if ineffective Sertraline HCL take 1.5 tabs by 135tabs Jd 07/24/2019 100mg mouth each day Hinds, N.P. Tablets Fioricet 1 capsule by mouth 30caps Concetta Iraheta, 05/30/2018 50-300-40mg every 8 hours as MBlack Capsules needed Ketorolac take 1 by mouth 10tabs Mark Burroughs 05/19/2015 Tromethamine every 8 hours as Yunier Gallegos 10mg needed for migraine. Tablets take with food. Flonase as needed Unknown 50mcg/Act Suspension Albuterol Sulfate as needed Unknown (2.5mg/3ML) 0.083% Nebulizer Acetaminophen as needed Unknown 500mg Capsules Vitamin D3 1 by mouth every day Unknown 2000Unit (winter only) Capsules Ondansetron take 1 -2 tabs under 40tabs Mark Burroughs 4mg Tablets the tongue every 8 Yunier Gallegos Dispers hours as needed for nausea Black Cohosh prn Unknown Magnesium 1 by mouth every day Unknown 500mg Capsules Co Q-10 1 by mouth every day Unknown 200mg Capsules Metoclopramide HCL take one tablet by Unknown 10mg mouth every 8 hours Tablets as needed for migraine associated nausea History Medications Metoclopramide HCL 1 po q6h prn 20tabs Mark Gallegos, 11/01/2019 - 5mg migraine M.DFlash 11/03/2019 Tablets Dispers Medrol Take as directed. 21units Mark Gallegos, 10/26/2019 - 4mg TBPK M.D. 11/02/2019 Immunizations Description No Information Available Vital Signs Date Vital Result Comment 11/03/2019 9:35am Height 62 inches 5'2" Weight 145.00 lb Heart Rate 70 /min BP Systolic 92 mmHg BP Diastolic 64 mmHg BMI (Body Mass Index) 26.5 kg/m2 10/26/2019 9:49am Height 62 inches 5'2" Weight 144.00 lb Heart Rate 64 /min BP Systolic Sitting 102 mmHg BP Diastolic Sitting 78 mmHg BMI (Body Mass Index) 26.3 kg/m2 Results Description No Information Available Procedures Description No Information Available Medical Devices Description No Information Available Encounters Type Date Location Provider Dx Diagnosis Office Visit 10/26/2019 [facility] Dipak Lazo, G43.009 Migraine w/o 9:30a Clinic [facility] aura, not intractable, w/o status migrainosus F39 Unspecified mood [affective] disorder H53.8 Other visual disturbances Office Visit 10/20/2019 8:00a [facility] Shira Di, N95.9 Unspecified [facility] menopausal and perimenopausal disorder R14.0 Abdominal distension (gaseous) K59.00 Constipation, unspecified G89.4 Chronic pain syndrome F33.9 Major depressive disorder, recurrent, unspecified N92.6 Irregular menstruation, unspecified R53.83 Other fatigue Office Visit 07/24/2019 [place] Concetta Iraheta, G43.109 Migraine with 8:30a Neurologic M.D. aura, not [facility] intractable, w/o status migrainosus F39 Unspecified mood [affective] disorder H53.8 Other visual disturbances Assessments Date Code Description Provider 11/03/2019 G43.009 Migraine without aura, not intractable, Dipak Lazo, [employer] without status migrainosus 11/03/2019 H53.8 Other visual disturbances Dipak Lazo, [employer] 11/03/2019 F39 Unspecified mood [affective] disorder Dipakkasey Lazo, [employer] 10/26/2019 G43.009 Migraine without aura, not intractable, Dipakkasey Lazo, [employer] without status migrainosus 10/26/2019 F39 Unspecified mood [affective] disorder Dipakkasey Lazo, [employer] 10/26/2019 H53.8 Other visual disturbances Dipak Clifton, [employer] 10/20/2019 N95.9 Unspecified menopausal and perimenopausal Shira Sevilla, [employer] disorder 10/20/2019 R14.0 Abdominal distension (gaseous) Shira Sevilla, [employer] 10/20/2019 K59.00 Constipation, unspecified Shira Sevilla, [employer] 10/20/2019 G89.4 Chronic pain syndrome Shiar Sevilla, [employer]FACE [employer] 10/20/2019 F33.9 Major depressive disorder, recurrent, Shira Sevilla, [employer] unspecified 10/20/2019 N92.6 Irregular menstruation, unspecified Shira Sevilla, SURFACE [employer]ER 10/20/2019 R53.83 Other fatigue Shira Sevilla, [employer] 07/24/2019 G43.109 Migraine with aura, not intractable, without Concetta Iraheta M.D. status migraino 07/24/2019 F39 Unspecified mood [affective] disorder Concetta Iraheta M.D. 07/24/2019 H53.8 Other visual disturbances Concetta Iraheta M.D. Plan of Treatment Future Appointment(s):11/25/2019 4:00 pm - Dipak Lazo NP at [facility]11/03/2019 - Dipak Lazo, BASIAG43.009 Migraine without aura, not intractable, without status migrainosusFollow up:Please sign a record of release for Courtney Jordan for yesterday 11/02/19. 2-3 YLWOMH81.8 Other visual [id number] Unspecified mood [affective] disorder Functional Status Description No Information Available Mental Status Description No Information Available Referrals Refer to Dr Reason for Referral Status Appt Date Pat West MD flashes of light in peripheral vision, Sent 00/00/ 0000 some associated with migraine, some with out. [facility] [address] [place] [phone]
[2019-11-07] MEDS ORDERED: Metoclopramide IV* 5 MG/ML 2 ML VIAL IV ONE (14:35)
[2019-11-07] MEDS ORDERED: diPHENhydraMINE IV* 50 MG/ML 1 ml VIAL (BENADRYL) IV ONE (14:35)
[2019-11-07] MEDS ORDERED: Ketorolac INJ* 30 MG/ML 1 ML VIAL IV PUSH ONE (14:35)
[2019-11-07] MEDS ORDERED: LORazepam INJ* 2 MG/ML 1 ML VIAL IV PUSH ONE (14:35)
[2019-11-07] MEDS ORDERED: NS 0.9% 1000 ML** 1,000 ML IV ONE ×2 (14:35→16:09)
[2019-11-07] MEDS ORDERED: Lorazepam PYXIS KEY PRN (14:35)
[2019-11-07 14:50] LABS: ABS Eosinophils 0.1 10^3/ul (0-0.6); ABS Lymphocytes 1.9 10^3/ul (1.0-4.8); ABS Monocytes 0.7 10^3/ul (0-0.8); ABS Neutrophils 6.7 10^3/ul (1.5-7.7); Eosinophil % 0.5 %; Hematocrit 44 % (35-47); Hemoglobin 15.1 g/dL (12.0-16.0); Mean Corpuscular HGB Conc 35 g/dL (31-36); Mean Corpuscular Hemoglobin 33 pg (27-31); Mean Corpuscular Volume 94 fL (80-97); Mean Platelet Volume 8.2 fL (7.4-10.4); Platelet Count 254 10^3/uL (150-450); Red Blood Count 4.61 10^6 /uL (3.70-4.87); Red Cell Distribution Width 14 % (10-15); White Blood Count 9.4 10^3/uL (3.5-10.8)
[2019-11-07 15:12] LABS: ALT 14 U/L (7-52); AST 14 U/L (13-39); Albumin 4.3 g/dL (3.2-5.2); Albumin/Globulin Ratio 1.6 (1-3); Alkaline Phosphatase 59 U/L (34-104); Anion Gap 13 mmol/L (2-11); BUN/Creatinine Ratio 15.6 (8-20); Blood Urea Nitrogen 12 mg/dL (6-24); CO2 Carbon Dioxide 22 mmol/L (22-32); Calcium 9.4 mg/dL (8.6-10.3); Chloride 101 mmol/L (101-111); EGFR African American 98.5 (>60); EGFR Non-African American 81.4 (>60); Globulin 2.7 g/dL (2-4); Glucose 97 mg/dL (70-100); Magnesium 1.9 mg/dL (1.9-2.7); Potassium 3.6 mmol/L (3.5-5.0); Sodium 136 mmol/L (135-145)
[2019-11-07 15:18] LABS: HCG Pregnancy < 0.60 mIU/mL
[2019-11-07 15:22] LABS: Alcohol < 10 mg/dL (<10)
[2019-11-07] MEDS ORDERED: Valproic Acid IV(*) 100 MG/ML 5 ML VIAL (500 MG) IVPB ONE (16:08)
[2019-11-07] MEDS ORDERED: methylPREDNISolone 125 MG* 2 ML VIAL IV ONE (16:09)
[2019-11-07] MEDS ORDERED: VALPROIC ACID 1000 MG IV - ED ONCE IVPB ONE ×2 (16:30)
[2019-11-07 22:20] VITALS: BP 100/71
--- NOTE | 2019-11-07 22:42 | CONS ---
NEUROLOGY CONSULTATION NOTE: DATE OF CONSULT: 11/07/19 - EMERGENCY DEPT CONSULTED BY: Dr. Flako Montoya. REASON FOR CONSULT: Headaches. CHIEF COMPLAINT: Headaches. HISTORY OF PRESENT ILLNESS: Ms. Lisandra Reynoso is a 43-year-old female with a history of atypical migraines since 2012, who has been following up with Dr. Iraheta. She has a diagnosis of atypical migraine with expressive aphasia and right hand numbness. The patient stated that she has had a headache for almost 21 days. The headache started gradually. Initially, the headaches started with her typical complex migraines where she has dizziness, expressive aphasia with mild headache. The headaches caused her to be anxious. She went to [place] multiple times and received IV Toradol and Reglan. The symptoms were not getting any better. She followed up with Mr. Lazo [facility] and stated that the steroid taper as well as other medications had been trialed for the headache have not helped. She recently received one of the CGRP -inhibitors with no improvement. She thinks it made her headaches worse. She is currently taking magnesium, Coenzyme 10, and riboflavin for preventive therapy. She does not take any abortive therapy at home. She describes the headache as retroorbital pain, varying severities throughout the day ranging from 4-10/10, associated with mild photophobia, nausea, gagging, expressive aphasia, and anxiety. She denied any Valsalva inducing headaches. She denied any focal weakness or paresthesias. The patient presented to ED where she received Toradol, Benadryl, lorazepam, Reglan, which helped the pain but she was still having a headache of 6/10 in severity. Following the initial treatment in the ED, I had recommended she receives Depakote 1000 mg IV and methylprednisolone 125 mg IV x 1. Her headache dropped to 1/10. She denied any nausea initially. She talked about the necessity that she should be admitted to be the hospital but I informed her that her headache is only 1/10 in severity; therefore it is not very severe to justify admission. She requested to receive DHE, but given that she is on sertraline at home, I informed her that she has high risk of developing serotonin syndrome. After ambulating the patient around the hallway, her partner kept repeatedly stating that "looks she appears pale and she is going faint," although the patient was feeling fine and was ambulating with minimal assist. At some point, she was ambulating alone feeling fine without the presence of her partner. After a few minutes, the patient laid back and stated that her headache now is 7/10 and that she feels extremely nauseated. She tried to gag but there was no vomiting. The patient stated that the only way her headache can resolve is if she gets admitted and receives 3 day course of IV Dilaudid. I was surprised when she mentioned that and then going back to history, it is true that she did have a headache in the past that required IV Dilaudid therapy. I informed her that we do not prescribe narcotic therapy for migraine headache especially since she is endorsing that this is her typical headache that she has had in the past. Furthermore, the patient was scheduled to drive to [place] on Saturday with her partner to participate in a rally regarding the border wall. The patient had an episode witnessed by staff in the ED where she was hyperventilating , stiffening of the right arm, and having tremor like movements. The patient currently denied any focal weakness or paresthesias. She denied any numbness, tingling, nausea or impairment in her bowel or bladder functions. PAST MEDICAL HISTORY: Back injury at work in December 2012, migraine headaches with expressive aphasia and right hand numbness presenting in May 2014, history of asthma, repeated sinus infection, tonsillectomy, depression for which she takes sertraline for. MEDICATIONS: Please note that the patient's home medications are not available at this time but the patient is on Sertraline 50 mg daily. She also uses DHE to abort her nausea. ALLERGIES: FLU SHOT. FAMILY HISTORY: Father and brother suffer with migraine headache. There is no family history of stroke or seizure. 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 She has a partner. She enjoys exercising. REVIEW OF SYSTEMS: A 14-point review of systems was obtained otherwise negative except for what was mentioned in HPI. PHYSICAL EXAM: Temperature of 98.6, pulse of 94, oxygen saturation of 95%, blood pressure of 101/66. General: Well-nourished, well-developed female, in no acute distress. Head: Atraumatic, normocephalic without any obvious abnormality. She had negative tenderness to the occipital region bilaterally. Eyes: Conjunctivae/corneas are clear. Neck is supple and symmetrical with no carotid bruits. There is no nuchal rigidity. Negative Brudzinski and Kernig signs. Cardiovascular: Regular rate and rhythm with normal S1, S2. Respiratory : Clear to auscultation bilaterally with no wheezing or rhonchi. Extremities: Normal range of motion with no cyanosis or edema. Skin: No skin lesions or laceration. Psych: Affect is broad, slightly depressed mood. She denied any sexual or physical abuse. Neurological Examination: Mental Status: Awake, alert and oriented to person, place and time and general circumstance. Her speech, language, fluency, comprehension including repetition were assessed and found to be normal. Cranial Nerves: Pupils are equal, round, reactive to light. Extraocular muscles are intact. Undilated funduscopic examination showed no evidence of blurred disc margin. The discs are sharp. There is normal venous pulsation. There is normal sensation in the skin bilaterally. No facial asymmetry. Tongue is symmetric and midline with no atrophy or fasciculation. Motor Examination: 5/5 strength in the upper and lower extremities, symmetrically bilaterally. There is normal tone throughout. Sensation is intact to light touch throughout. Reflexes are 2+ in the upper and lower extremity. Gait: Slow, antalgic gait, but no ataxia. Coordination: Normal [id number] and [id number] testing bilaterally. I reviewed MRI results completed in 2018 that showed stable non-specific white matter changes of the left insula with normal enhancement. ASSESSMENT AND RECOMMENDATION: Ms. Lisandra Reynoso is a 43-year-old female who has known history atypical migraine headaches with expressive aphasia, who presents with status migrainosus. 1. Status migrainosus. Seems to have responded well to the loading dose of Depakote, steroids, Toradol, Benadryl, and Reglan. After informing the patient that she was going to be discharged since her headache is 1/10 in severity, she stated that within minutes, her headache went up to a severity of 7/10 and she is severely nauseated now. I informed her that DHE would not be indicated and is risky given that she is on a SSRI and her risk of serotonin syndrome is high. Her vitals are stable including a normal blood pressure and heart rate. I am not convinced that currently she is still having status migrainosus. I did inform her that we can give her Depakote 500 mg every 8 hours for the next 3 days to help with aborting the migraine headache since we suspect this is what helped her when she came in today. She stated that she prefers to have IV medications such as Dilaudid or benzodiazepines. She feels like maybe there is an anxiety component and could be having a panic attack early today when she was having stiffness of the right hand which she was aware of. I informed her that we cannot give her narcotic therapy for migraine or anxiety as it's not indicated for these conditions, but she should discuss with her psychiatrist or counselor for possible other alternative medications for anxiety or panic attacks. Although, she appeared upset that we will be discharging her today, I did provide her reassurance and stated that she may benefit from an occipital nerve block if she continues to have severe headaches in the near future, we may even consider Botox therapy. She verbalized understanding. She was able to walk around with me today without any difficulty. I discussed these recommendations with Dr. Montoya, who agreed with the plan and will be discharging the patient home. The patient can follow up with Dipak Lazo. I advised her to come back to the ED if she has worsening of her headache or her headache or if she develops any new neurological symptoms. [id number]/[facility] #: [id number] GAB
== END 2019-11-07 21:07 | disposition home or self-care (01) ==
LOC: ED 14:20
DX: G43.901 Migraine, unspecified, not intractable, with status migrainosus (principal); F41.9 Anxiety disorder, unspecified; R11.2 Nausea with vomiting, unspecified; R25.1 Tremor, unspecified; J45.909 Unspecified asthma, uncomplicated; Z88.7 Allergy status to serum and vaccine; Z91.018 Allergy to other foods; Z91.09 Other allergy status, other than to drugs and biological substances; Z79.51 Long term (current) use of inhaled steroids
CPT/HCPCS: 36415; 80053; 80320; 83735; 84702; 85025; 96361; 96365; 96366; 96375; 99284; G0480; J1200; J1885; J2060; J2765; J2930